=== PATIENT | male | born 1965 | race Caucasian/White ===

== ENCOUNTER 2021-09-02 08:48 | Observation (INO) | payer MEDICAID ==
[~2021-09-02] VITALS: Ht 167.7 cm; Wt 66.0 kg
[2021-09-02] MEDS ORDERED: ONDANSETRON 4 MG/2 ML (SDV) Z0FRAN ONE (09:17)
[2021-09-02 09:29] LABS: BASOPHILS # (AUTO) 0.1 10^3/uL (0.0-0.1); BASOPHILS % (AUTO) 1 % (0-10); EOSINOPHILS # (AUTO) 0.1 10^3/uL (0.0-0.3); EOSINOPHILS % (AUTO) 1 % (0-10); HEMATOCRIT 41 % (40-54); HEMOGLOBIN 14.4 g/dL (13.3-17.7); LYMPHOCYTES % (AUTO) 43 % (12-44); MEAN CORPUSCULAR HEMOGLOBIN 31 pg (25-34); MEAN CORPUSCULAR HGB CONC 35 g/dL (32-36); MEAN CORPUSCULAR VOLUME 89 fL (80-99); MEAN PLATELET VOLUME 10.6 fL (9.0-12.2); MONOCYTES # (AUTO) 0.7 10^3/uL (0.0-1.0); MONOCYTES % (AUTO) 7 % (0-12); NEUTROPHILS # (AUTO) 4.5 10^3/uL (1.8-7.8); NEUTROPHILS % (AUTO) 48 % (42-75); PLATELET COUNT 293 10^3/uL (130-400); WHITE BLOOD COUNT 9.3 10^3/uL (4.3-11.0)
[2021-09-02] MEDS ORDERED: CEFEPIME INJECTION 1,000 MG in NS (IVPB) 50 ML IV ONE (09:30)
[2021-09-02] MEDS ORDERED: NS IV 1000 ML 1,000 ML IV SCH ×3 (09:30→12:00)
[2021-09-02] MEDS ORDERED: ONDANSETRON 4 MG/2 ML (SDV) Z0FRAN IV PRN (09:30)
[2021-09-02] MEDS ORDERED: VANCOMYCIN INJECTION 1,250 MG in NS (IVPB) 250 ML IV ONE (09:30)
--- NOTE | 2021-09-02 09:30 | ED Neurological Problem ---
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 Patient complains that he feels like his left side of his face and arm are numb and tingly. No chest pain or tightness. No history of heart disease or stroke. Family history of cancer and Parkinson's. He denies nausea. He says he has a history of Tourette's. He says he has been having a hard time with walking due to a combination of feeling off balance as well as weakness in his left side. His sister says sometimes when his Tourette's acts up he has problems with balance but this is much worse. 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 He does not smoke cigarettes use tobacco products or marijuana. He denies recreational drug use. He does have a history of hypertension, hyperlipidemia and diabetes. His sugars usually run high. Pt has had EGD with Ulcers and laparoscopic pancreatic stone retrieval. Father had early onset coronary disease in his mid 40s. Allergies and Home Medications Allergies Coded Allergies: No Known Drug Allergies (Unverified , 02/21/11) Patient Home Medication List Home Medication List Reviewed: Yes Review of Systems Review of Systems Constitutional: No chills, No diaphoresis Eyes: Denies Blindness, Denies Drainage Ears, Nose, Mouth, Throat: denies ear pain, denies ear discharge Respiratory: cough; No phlegm, No short of breath Cardiovascular: No chest pain, No edema Gastrointestinal: No abdominal pain; nausea, vomiting Genitourinary: No discharge, No dysuria All Other Systems Reviewed Negative Unless Noted: Yes Past Tikpbfl-Cfwwqu-Nowpfw Hx Patient Social History Tobacco Use?: No Use of E-Cig and/or Vaping dev: No Substance use?: No Alcohol Use?: No Physical Exam Vital Signs Vital Signs - First Documented 09/02/21 09:04 Temp 36.0 Pulse 78 Resp 16 B/P (MAP) 91/70 (77) Pulse Ox 96 O2 Delivery Room Air Capillary Refill : Height, Weight, BMI Height: '" Weight: lbs. oz. kg; BMI Method: General Appearance: moderate distress, thin, other (Chronically ill) HEENT: PERRL/EOMI, pharynx normal Neck: full range of motion, supple, normal inspection Respiratory: chest non-tender, lungs clear, normal breath sounds, no respiratory distress, no accessory muscle use Cardiovascular: normal peripheral pulses, regular rate, rhythm (60-70), no edema Peripheral Pulses: 2+ Dorsalis Pedis (R), 2+ Left Dors-Pedis (L) Gastrointestinal: non tender, soft, no organomegaly Extremities: normal range of motion, non-tender, normal inspection, normal capillary refill Neurologic/Psychiatric: alert, oriented x 3 Crainal Nerves: normal hearing, normal speech, PERRL Coordination/Gait: abnormal gait (Stumbling, brought in by wheelchair) Skin: diaphoresis, pallor Stroke Onset of Symptoms Date of Onset of Symptoms: Sep 01, 2021 Time of Symptom Onset: 19:00 Onset of Symptoms: Yes Symptoms onset unknown: No NIH Stroke Scale Assessment Select: Initial Level of Consciousness: 0=Alert (0), Level of Consciousness- Questions: 0=Answers both month/age (0), LOC Commands: 0=Performs both tasks (0), Gaze: Normal (0), Visual Rodriges: 0=No visual loss (0), Facial Movement (Facial Paresis): 0=Normal symmetrical mnt (0), Motor Function-Arms Right: 0=No drift (0), Motor Function-Arms Left: 0=No drift (0), Motor Function-Legs Right: 0=No drift (0), Motor Function-Legs Left: 0=No drift (0), Limb Ataxia: 0=Absent (0), Sensory: 0=Normal:no loss (0), Best Language: 0=No aphasia (0), Dysarthria: 0=Normal (0), Extinction & Inattention: 0=No abnormality (0), Total: 0 Stroke Thrombolytic Exclusion Age 18 or Over: Yes Acute intenal hemorrhage: No History of CVA: No Uncontrolled Coagulation Defec: No Intracranial Hemorrhage: No Severe Hypertension: No GI or Bleed: No Subarachnoid Hemorrhage: No Intracranial Neoplasm/Aneurysm: No Oral Anticoagulants: No Surgery or Trauma: No Puncture of Non-Compressible V: No Recent CPR: No Diabetic Hemorrhagic Retinopat: No Organ Biopsy: No Recent Obstetric Delivery: No Glucose: No (159) Significant Hepatic Dysfunctio: No NIH Stoke Scale >22: No Bacterial Endocarditis: No Pericarditis: No Improving Symptoms: No Platelets: No TPA Contraindication: No IV - TPa Received IV - TPa Procedure Performed?: No (Insufficient benefit versus risk.) Focused Exam Lactate Level 09/02/21 09:20: Lactic Acid Level 4.64*H 09/02/21 12:07: Lactic Acid Level 2.45*H Lactic Acid Level Laboratory Tests Test 09/02/21 09:20 09/02/21 12:07 Lactic Acid Level 4.64 MMOL/L (0.50-2.00) *H 2.45 MMOL/L (0.50-2.00) *H Progress/Results/Core Measures Results/Orders Lab Results Laboratory Tests Test 09/02/21 09:13 09/02/21 09:20 09/02/21 09:28 09/02/21 11:00 Range/Units Glucometer 159 H 70-110 MG/DL White Blood Count 9.3 4.3-11.0 10^3/uL Red Blood Count 4.61 4.30-5.52 10^6/uL Hemoglobin 14.4 13.3-17.7 g/dL Hematocrit 41 40-54 % Mean Corpuscular Volume 89 80-99 fL Mean Corpuscular Hemoglobin 31 25-34 pg Mean Corpuscular Hemoglobin Concent 35 32-36 g/dL Red Cell Distribution Width 12.5 10.0-14.5 % Platelet Count 293 130-400 10^3/uL Mean Platelet Volume 10.6 9.0-12.2 fL Immature Granulocyte % (Auto) 0 % Neutrophils (%) (Auto) 48 42-75 % Lymphocytes (%) (Auto) 43 12-44 % Monocytes (%) (Auto) 7 0-12 % Eosinophils (%) (Auto) 1 0-10 % Basophils (%) (Auto) 1 0-10 % Neutrophils # (Auto) 4.5 1.8-7.8 10^3/uL Lymphocytes # (Auto) 4.0 1.0-4.0 10^3/uL Monocytes # (Auto) 0.7 0.0-1.0 10^3/uL Eosinophils # (Auto) 0.1 0.0-0.3 10^3/uL Basophils # (Auto) 0.1 0.0-0.1 10^3/uL Immature Granulocyte # (Auto) 0.0 0.0-0.1 10^3/uL Prothrombin Time 12.2 12.2-14.7 SEC INR Comment 0.9 0.8-1.4 Activated Partial Thromboplast Time 22 L 24-35 SEC D-Dimer 0.32 0.00-0.49 UG/ML Sodium Level 138 135-145 MMOL/L Potassium Level 3.3 L 3.6-5.0 MMOL/L Chloride Level 101 98-107 MMOL/L Carbon Dioxide Level 22 21-32 MMOL/L Anion Gap 15 H 5-14 MMOL/L Blood Urea Nitrogen 10 7-18 MG/DL Creatinine 1.15 0.60-1.30 MG/DL Estimat Glomerular Filtration Rate 66 BUN/Creatinine Ratio 9 Glucose Level 153 H 70-105 MG/DL Lactic Acid Level 4.64 *H 0.50-2.00 MMOL/L Calcium Level 10.0 8.5-10.1 MG/DL Corrected Calcium 10.0 8.5-10.1 MG/DL Total Bilirubin 0.5 0.1-1.0 MG/DL Aspartate Amino Transf (AST/SGOT) 17 5-34 U/L Alanine Aminotransferase (ALT/SGPT) 13 0-55 U/L Alkaline Phosphatase 114 40-136 U/L Troponin I < 0.028 <0.028 NG/ML C-Reactive Protein High Sensitivity 0.18 0.00-0.50 MG/DL Total Protein 7.6 6.4-8.2 GM/DL Albumin 4.0 3.2-4.5 GM/DL Lipase 12 8-78 U/L Procalcitonin 0.06 <0.10 NG/ML Influenza Type A (RT-PCR) Not Detected Not Detecte Influenza Type B (RT-PCR) Not Detected Not Detecte SARS-CoV-2 RNA (RT-PCR) Not Detected Not Detecte Urine Color YELLOW Urine Clarity CLEAR Urine pH 6.0 5-9 Urine Specific [place] <=1.005 1.016-1.022 Urine Protein 1+ H NEGATIVE Urine Glucose (UA) 3+ H NEGATIVE Urine Ketones NEGATIVE NEGATIVE Urine Nitrite NEGATIVE NEGATIVE Urine Bilirubin NEGATIVE NEGATIVE Urine Urobilinogen 0.2 < = 1.0 MG/DL Urine Leukocyte Esterase NEGATIVE NEGATIVE Urine RBC (Auto) NEGATIVE NEGATIVE Urine RBC NONE /HPF Urine WBC NONE /HPF Urine Squamous Epithelial Cells 0-2 /HPF Urine Crystals NONE /LPF Urine Bacteria NEGATIVE /HPF Urine Casts NONE /LPF Urine Mucus NEGATIVE /LPF Urine Culture Indicated CULTURE PENDING Test 09/02/21 12:07 Range/Units Lactic Acid Level 2.45 *H 0.50-2.00 MMOL/L My Orders Orders - HARRY DORMAN Ondansetron Injection (Zofran Injectio (09/02/21 09:17) Ct Head Wo (09/02/21:18) Cbc With Automated Diff (09/02/21:18) Comprehensive Metabolic Panel (09/02/21:18) Blood Culture (09/02/21:18) Urinalysis (09/02/21:18) Urine Culture (09/02/21:18) Protime With Inr (09/02/21:18) Partial Thromboplastin Time (09/02/21:18) Chest 1 View, Ap/Pa Only (09/02/21:18) Ed Iv/Invasive Line Start (09/02/21:18) Ed Iv/Invasive Line Start (09/02/21:18) Ekg Tracing (09/02/21:18) Troponin I (09/02/21:18) Vital Signs Adult Sepsis Patie Q15M (09/02/21 09:18) Ondansetron Injection (Zofran Injectio (09/02/21 09:30) O2 (09/02/21:18) Remove Rings In Anticipation O (09/02/21:18) Lactic Acid Analyzer (09/02/21:18) Influenza A And B By Pcr (09/02/21:18) Ns Iv 1000 Ml (Sodium Chloride 0.9%) (09/02/21 09:30) Cefepime Injection (Maxipime Injection) (09/02/21 09:30) Vancomycin Injection (Vancomycin Injecti (09/02/21 09:30) Ed Iv/Invasive Line Start (09/02/21:18) Ns Iv 1000 Ml (Sodium Chloride 0.9%) (09/02/21 09:30) Covid 19 Inhouse Test (09/02/21 09:18) Procalcitonin (Pct) (09/02/21 09:18) Hs C Reactive Protein (09/02/21 09:18) Fibrin Degradation Products (09/02/21 09:18) Ekg Tracing (09/02/21 09:40) Ekg Tracing (09/02/21 09:40) Aspirin Chewable Tablet (Baby Aspirin Ch (09/02/21 10:00) Ct Abdomen/Pelvis W (09/02/21 10:06) Iohexol Injection (Omnipaque 350 Mg/Ml 1 (09/02/21 10:15) Received Contrast (Hold Metformin- Contr (09/02/21 10:15) Ns (Ivpb) (Sodium Chloride 0.9% Ivpb Bag (09/02/21 10:15) Lipase (09/02/21 10:53) Chest Pa/Lat (2 View) (09/02/21 10:53) Ed Iv/Invasive Line Start (09/02/21 11:58) Ns Iv 1000 Ml (Sodium Chloride 0.9%) (09/02/21 12:00) Medications Given in ED Current Medications Medications Dose Ordered Sig/[place] Route Start Time Stop Time Status Last Admin Dose Admin Aspirin 324 mg ONCE ONCE PO 09/02/21 10:00 09/02/21 10:01 DC 09/02/21 10:00 324 MG Iohexol 100 ml ONCE ONCE IV 09/02/21 10:15 09/02/21 10:16 DC 09/02/21 10:21 72 ML Ondansetron HCl 8 mg PRN PRN IV 09/02/21 09:30 09/02/21 09:30 DC 09/02/21 09:29 8 MG Sodium Chloride 100 ml ONCE ONCE IV 09/02/21 10:15 09/02/21 10:16 DC 09/02/21 10:22 80 ML Vital Signs/I&O 09/02/21 09:04 Temp 36.0 Pulse 78 Resp 16 B/P (MAP) 91/70 (77) Pulse Ox 96 O2 Delivery Room Air Progress Progress Note #1: Time: 09:30 Progress Note In the middle of our opening interview the patient suddenly became unresponsive tossing his head from side to side and grunting. He then vomited out a hou cheeseburger that looked mostly undigested from last night. Blood sugar was obtained at 159. Patient was put into recovery position and his mouth was suctioned. EKG demonstrated some ST depression with a right bundle branch block in his anterior lateral leads. 8 mg of Zofran were given. A septic work-up was ordered. We are concerned for an atypical anginal presentation. Will repeat EKG shortly. Patient is now lucid, answering questions appropriately. He is pale diaphoretic and looks puny. While he has no fever he does have a cough. His abdomen is soft and nontender leading me to be concerned about gastroparesis more so than bowel obstruction. Because I am concerned for posterior OK we are repeating an EKG and doing a posterior lead EKG. If that is negative then we will perform an NIH. We were not able to complete NIH earlier because the patient became unresponsive in the middle of our exam. Progress Note #2: Time: 09:48 Progress Note Completed an NIH. Patient is lucid following commands. NIH is 0 he does not have any lateralizing symptoms except for paresthesias but no numbness. We will give him some aspirin to chew and swallow for cardioprotection and continue to work-up for infection. Progress Note #3: Time: 12:56 Progress Note On reexamination patient is about 1500 cc into his IV fluid bolus that. He has good blood pressure and says he is feeling much better. No nausea or vomiting. He is no longer sweaty pale and is now much more alert and active. Suspect perhaps he has become dehydrated related to chronic hyperglycemia. Discussed the case briefly with Dr. Dozier to see if there is anything else we should be concerned about especially along the lines of an ischemic bowel and he feels that dehydration makes more sense for the lactate and would recommend observation without antibiotics. Initial ECG Impression Date: Sep 02, 2021 Initial ECG Impression Time: 09:15 Initial ECG Rate: 68 Initial ECG Rhythm: Normal Sinus Initial ECG Intervals: Normal Initial ECG Impression: Normal Initial ECG Comparisson: No Previous ECG Available Comment Normal sinus rhythm with ST depression 1-2 blocks in the anterior lateral leads and a wandering baseline. Right bundle branch block. EKG #1: EKG Time: 09:35 Rate: 62 Rhythm: Normal Sinus Intervals: Normal ECG Comparisson: Unchanged ECG Impression: Normal, Nonspecific Changes Comment Normal sinus rhythm with a right bundle branch block. No clinically relevant ST changes. EKG #2: EKG Time: 09:37 Rate: 71 Rhythm: Normal Sinus Intervals: QT (492) ECG Comparisson: Unchanged ECG Impression: Normal, Nonspecific Changes Comment Posterior leads V4 through V6. Normal sinus rhythm with a right bundle branch block and borderline prolonged QT interval. No clinically relevant ST changes. Diagnostic Imaging Diagonstic Imaging: Xray Plain Films/CT/US/NM/MRI: chest [facility] [place] [place] NAME: [facility]I [facility] REC#: [id number] PT STATUS: REG ER : 1965 PHYSICIAN: HARRY DORMAN MD ADMIT DATE: 09/02/21/ER Draft Date of Exam:09/02/21 CHEST 1 VIEW, AP/PA ONLY INDICATION: sepsis. TECHNIQUE: Single view chest 10:19 AM. CORRELATION STUDY: 05/17/2017 FINDINGS: The heart size, mediastinal configuration and pulmonary vascularity are within normal limits. The lungs are clear with no consolidating infiltrate. Faint, slightly nodular opacity lateral left mid to lower lung field. There is no significant effusion or pneumothorax. IMPRESSION: 1. Negative for acute abnormality of the chest. 2. Questionable nodule lateral left mid and lower lung field. Area previously obscured by overlying monitor lead. Short-term followup two-view chest imaging recommended for reassessment, preferably to include nipple markers. Dictated on workstation # [id number] Dict: 09/02/21 1027 Trans: 09/02/21 1030 [facility] [id number] Interpreted by: JOE KOTHARI DO Electronically signed by: Reviewed: Reviewed by Me Diagonstic Imaging: CT Plain Films/CT/US/NM/MRI: head Comments [facility] [place] [place] NAME: SHRUTI [facility] REC#: [id number] PT STATUS: REG ER : 1965 PHYSICIAN: HARRY DORMAN MD ADMIT DATE: 09/02/21/ER Draft Date of Exam:09/02/21 CT HEAD WO PROCEDURE: CT head without contrast. TECHNIQUE: Multiple contiguous axial images were obtained through the brain without the use of intravenous contrast. Auto Exposure Controls were utilized during the CT exam to meet ALARA standards for radiation dose reduction. INDICATION: Left arm numbness and coolness. Worsening Tourette's. Difficulty with balance sitting. FINDINGS: Noncontrasted images show ventricles and cortical gyral pattern to be normal. There is no intracranial hemorrhage. No mass effect. No extra-axial fluid collection. Basal cisterns are clear. CP angles are normal. Mastoid air cells and paranasal sinuses are clear. No bony abnormalities. IMPRESSION: Negative CT head without contrast. Dictated on workstation # [id number] Dict: 09/02/21 1020 Trans: 09/02/21 1023 CV [id number] Interpreted by: SYED PALACIOS MD Electronically signed by: Reviewed: Reviewed by Me Diagonstic Imaging: CT Plain Films/CT/US/NM/MRI: abdomen, pelvis Comments [facility] [place] [place] NAME: SHRUTI [facility] REC#: [id number] PT STATUS: REG ER : 1965 PHYSICIAN: HARRY DORMAN MD ADMIT DATE: 09/02/21/ER Signed Date of Exam:09/02/21 CT ABDOMEN/PELVIS W EXAMINATION: CT abdomen and pelvis with intravenous contrast. TECHNIQUE: Multiple contiguous axial images were obtained through the abdomen and pelvis after the uneventful administration of intravenous contrast. All CT scans use one or more of the following dose optimizing techniques: automated exposure control, MA and/or KvP adjustment based on patient size and exam type or iterative reconstruction. HISTORY: Nausea and vomiting COMPARISON: None available. FINDINGS: Lung bases: Bibasilar dependent atelectasis. Solid organs: The liver is normal without focal lesion. The gallbladder is normal. There is no biliary ductal dilation. There are multiple calcifications within the pancreas, largest within the pancreatic head. There is pancreatic ductal dilatation and irregularity. Spleen is normal. Adrenal glands are normal. The kidneys are normal without hydronephrosis. Bowel: The stomach and small bowel are normal without obstruction. Decompression or wall thickening of the ascending colon. The appendix is normal. Peritoneum: There is no intraperitoneal free fluid or free air. No suspicious lymphadenopathy. Vasculature: Calcification of the aorta without aneurysm. Musculoskeletal: Degenerative changes of the spine without suspicious osseous lesion or compression fracture. Pelvis: The prostate gland is normal. The urinary bladder is normal. IMPRESSION: 1. Mild wall thickening of the ascending colon which can be seen with decompression although infectious or inflammatory colitis would be within the differential in the appropriate clinical setting. 2. Pancreatic ductal dilatation and irregularity with scattered pancreatic calcifications compatible with chronic pancreatitis. Dictated by: Dictated on workstation # [id number] Dict: 09/02/21 1026 Trans: 09/02/21 1033 CVB [id number] Interpreted by: SAEED DOSS DO Electronically signed by: SAEED DOSS DO 09/02/21 1033 Reviewed: Reviewed by Me Diagonstic Imaging: Xray Plain Films/CT/US/NM/MRI: chest Comments [facility] [place] [place] NAME: SHRUTI [facility] REC#: [id number] PT STATUS: REG ER : 1965 PHYSICIAN: HARRY DORMAN MD ADMIT DATE: 09/02/21/ER Draft Date of Exam:09/02/21 CHEST PA/LAT (2 VIEW) Portable erect AP chest at 11:25. Indication: Altered mental status The heart size is within normal limits and stable when compared to 05/17/2017. There are mild chronic pulmonary changes evident but there is no sign of failure, pneumonia or pleural effusion to indicate an acute abnormality. Bilateral nipple markers are seen on the PA view. The mediastinum is not widened. The osseous structures are intact. Impression: There are chronic pulmonary changes evident but there is no sign of an acute cardiopulmonary abnormality. Dictated on workstation # [id number] Dict: 09/02/21 1131 Trans: 09/02/21 1134 CVB [id number] Interpreted by: PATRICIA FELICIANO MD Electronically signed by: Reviewed: Reviewed by Me Departure Communication (Admissions) Time/Spoke to Admitting Phy: 12:[address] West he agrees with observing the patient on the c ardiac stepdown with cardiac consultation. Time/Spoke to Consulting Phy: 12:[address] Dozier and he recommends holding off antibiotics and just rehydrating. He would recommend rescoping the patient in 6 weeks outpatient. [address] Feldman, cardiology he agrees to consult on the case. Impression Primary Impression: ACS (acute coronary syndrome) Additional Impression: Dehydration Disposition: ADMITTED INPATIENT Condition: Stable Admissions Decision to Admit Reason: Admit from ER (General) Decision to Admit/Date: Sep 02, 2021 Time/Decision to Admit Time: 12:30 Departure-Patient Inst. Referrals: NO,LOCAL PHYSICIAN (PCP/Family) Primary Care Physician Scripts No Active Prescriptions or Reported Meds HARRY DORMAN Sep 02, 2021 09:30
[2021-09-02 09:44] LABS: CHLORIDE 101 MMOL/L (98-107); POTASSIUM 3.3 MMOL/L (3.6-5.0); SODIUM 138 MMOL/L (135-145)
[2021-09-02 09:46] LABS: FIBRIN DEGRADATION PRODUCTS 0.32 UG/ML (0.00-0.49); GLUCOSE 153 MG/DL (70-105); INR 0.9 (0.8-1.4); PROTHROMBIN TIME PATIENT 12.2 SEC (12.2-14.7); TOTAL PROTEIN 7.6 GM/DL (6.4-8.2)
[2021-09-02 09:47] LABS: CARBON DIOXIDE 22 MMOL/L (21-32)
[2021-09-02 09:48] LABS: BILIRUBIN,TOTAL 0.5 MG/DL (0.1-1.0)
[2021-09-02 09:49] LABS: ALKALINE PHOSPHATASE 114 U/L (40-136)
[2021-09-02 09:50] LABS: CREATININE SERUM 1.15 MG/DL (0.60-1.30); GFR ESTIMATED 66
[2021-09-02 09:51] LABS: BUN/CREATININE RATIO 9
[2021-09-02 09:53] LABS: ALANINE AMINOTRANSFERASE 13 U/L (0-55)
[2021-09-02] MEDS ORDERED: ASPIRIN 81 MG CHEW (CHILDREN'S ASA) PO ONE (10:00)
[2021-09-02] MEDS ORDERED: NS 100 ML (IVPB) BAG IV ONE (10:15)
[2021-09-02] MEDS ORDERED: IOHEXOL 350 MG/ML 100 ML (OMNIPAQUE 350) VIAL IV ONE (10:15)
[2021-09-02] MEDS ORDERED: HOLD METFORMIN - RECEIVED CONTRAST 20 ML VIAL IV SCH (10:15)
--- NOTE | 2021-09-02 10:23 | Diagnostic Imaging Report ---
PROCEDURE: CT head without contrast. TECHNIQUE: Multiple contiguous axial images were obtained through the brain without the use of intravenous contrast. Auto Exposure Controls were utilized during the CT exam to meet ALARA standards for radiation dose reduction. INDICATION: Left arm numbness and coolness. Worsening Tourette's. Difficulty with balance sitting. FINDINGS: Noncontrasted images show ventricles and cortical gyral pattern to be normal. There is no intracranial hemorrhage. No mass effect. No extra-axial fluid collection. Basal cisterns are clear. CP angles are normal. Mastoid air cells and paranasal sinuses are clear. No bony abnormalities. IMPRESSION: Negative CT head without contrast. Dictated by: Dictated on workstation # [id number]
--- NOTE | 2021-09-02 10:30 | Diagnostic Imaging Report ---
INDICATION: sepsis. TECHNIQUE: Single view chest 10:19 AM. CORRELATION STUDY: 05/17/2017 FINDINGS: The heart size, mediastinal configuration and pulmonary vascularity are within normal limits. The lungs are clear with no consolidating infiltrate. Faint, slightly nodular opacity lateral left mid to lower lung field. There is no significant effusion or pneumothorax. IMPRESSION: 1. Negative for acute abnormality of the chest. 2. Questionable nodule lateral left mid and lower lung field. Area previously obscured by overlying monitor lead. Short-term followup two-view chest imaging recommended for reassessment, preferably to include nipple markers. Dictated by: Dictated on workstation # [id number]
--- NOTE | 2021-09-02 10:33 | Diagnostic Imaging Report ---
EXAMINATION: CT abdomen and pelvis with intravenous contrast. TECHNIQUE: Multiple contiguous axial images were obtained through the abdomen and pelvis after the uneventful administration of intravenous contrast. All CT scans use one or more of the following dose optimizing techniques: automated exposure control, MA and/or KvP adjustment based on patient size and exam type or iterative reconstruction. HISTORY: Nausea and vomiting COMPARISON: None available. FINDINGS: Lung bases: Bibasilar dependent atelectasis. Solid organs: The liver is normal without focal lesion. The gallbladder is normal. There is no biliary ductal dilation. There are multiple calcifications within the pancreas, largest within the pancreatic head. There is pancreatic ductal dilatation and irregularity. Spleen is normal. Adrenal glands are normal. The kidneys are normal without hydronephrosis. Bowel: The stomach and small bowel are normal without obstruction. Decompression or wall thickening of the ascending colon. The appendix is normal. Peritoneum: There is no intraperitoneal free fluid or free air. No suspicious lymphadenopathy. Vasculature: Calcification of the aorta without aneurysm. Musculoskeletal: Degenerative changes of the spine without suspicious osseous lesion or compression fracture. Pelvis: The prostate gland is normal. The urinary bladder is normal. IMPRESSION: 1. Mild wall thickening of the ascending colon which can be seen with decompression although infectious or inflammatory colitis would be within the differential in the appropriate clinical setting. 2. Pancreatic ductal dilatation and irregularity with scattered pancreatic calcifications compatible with chronic pancreatitis. Dictated by: Dictated on workstation # [id number]
[2021-09-02 11:08] LABS: BILIRUBIN,URINE NEGATIVE (NEGATIVE); CLARITY,URINE CLEAR; COLOR,URINE YELLOW; GLUCOSE, URINE (UA) 3+ (NEGATIVE); KETONES,URINE NEGATIVE (NEGATIVE); LEUKOCYTE ESTERASE ,URINE NEGATIVE (NEGATIVE); NITRITE,URINE NEGATIVE (NEGATIVE); PROTEIN,URINE 1+ (NEGATIVE)
[2021-09-02 11:22] LABS: BACTERIA,URINE NEGATIVE /HPF; SQUAMOUS EPITHELIAL CELL,UR 0-2 /HPF
--- NOTE | 2021-09-02 11:34 | Diagnostic Imaging Report ---
Portable erect AP chest at 11:25. Indication: Altered mental status The heart size is within normal limits and stable when compared to 05/17/2017. There are mild chronic pulmonary changes evident but there is no sign of failure, pneumonia or pleural effusion to indicate an acute abnormality. Bilateral nipple markers are seen on the PA view. The mediastinum is not widened. The osseous structures are intact. Impression: There are chronic pulmonary changes evident but there is no sign of an acute cardiopulmonary abnormality. Dictated by: Dictated on workstation # [id number]
[2021-09-02 14:13] VITALS: BP 131/78
[2021-09-02] MEDS ORDERED: INSU100V6 SQ (14:29)
[2021-09-02] MEDS ORDERED: PAMI30VI8 SQ ×2 (14:29)
[2021-09-02] MEDS ORDERED: FLU QUADRIvalent (3YOA+) 60 mcg/0.5 ml 2021-22(AFLURIA) IM ONE (14:30)
[2021-09-02] MEDS ORDERED: NITROGLYCERIN 0.4 MG SL TABS BTL 25'S SL PRN (14:45)
[2021-09-02] MEDS ORDERED: morphine INJ 4 MG/ML 1 ML (VIAL/SYRINGE) IV PRN (14:45)
[2021-09-02] MEDS ORDERED: ACETAMINOPHEN 325 MG TABLET PO PRN (15:00)
[2021-09-02] MEDS ORDERED: ONDANSETRON 4 MG/2 ML (SDV) Z0FRAN IVP PRN (15:00)
[2021-09-02] MEDS ORDERED: INSU100I23 SQ (15:49)
[2021-09-02] MEDS ORDERED: DICL100G13 TOP (15:49)
[2021-09-02] MEDS ORDERED: ATOR80TA76 PO (15:49)
[2021-09-02] MEDS ORDERED: ASPI-1238 PO (15:49)
[2021-09-02] MEDS ORDERED: INSU100I10 SC (15:49)
[2021-09-02] MEDS ORDERED: PANT40TA52 PO (15:49)
[2021-09-02] MEDS ORDERED: DAPA10TA PO (15:49)
[2021-09-02] MEDS ORDERED: INSU100I23 SC (15:49)
[2021-09-02] MEDS ORDERED: LISI10TA25 PO (15:49)
[2021-09-02] MEDS ORDERED: PIOG30TA71 PO (15:50)
[2021-09-02 15:55] VITALS: BP 130/84
[2021-09-02] MEDS ORDERED: inSUlin ASPART (NovoLOG) 1 UNIT/0.01 ML (CHARGE PER UNIT) SC SCH ×2 (16:00→18:00)
[2021-09-02] MEDS: LACTATED RINGERS 1,000 ML IV SCH (16:04)
--- NOTE | 2021-09-02 16:14 | Consultation - Surgery ---
YOANA MIJARES 09/02/21 1614: History of Present Illness History of Present Illness Patient Consulted On(trenton/time) 09/02/21 16:14 Date Seen by Provider: Sep 02, 2021 Time Seen by Provider: 16:44 History of Present Illness Kartik Martínez is a 56 yo male with a history of HTN, HLD, and IDDM, who presented to the ER for evaluation and management of left face and left arm numbness and tingling during a Tourrette's flare-up, concerning for possible ACS. Patient states that he has had symptoms like this before, but never to this degree. He states that he also had trouble walking due to feeling off balance in addition to weakness in left side. Patient states that when he presented to the ER in the AM, he vomited, after which he felt improved, and states that he has not had nausea or vomiting since. Patient denies any, SOA, dizziness, or abdominal pain. Patient is on LR running on 100 ml/hr. We were consulted on this patient due to incidental finding of mild wall thickening of the ascending colon, suggestive of possible infectious/ inflammatory colitis or decompression. Allergies and Home Medications Allergies Coded Allergies: No Known Drug Allergies (Unverified , 02/21/11) Patient Home Medication List Home Medication List Reviewed: Yes Aspirin (Aspirin EC) 81 Mg Tablet.dr, 81 MG PO DAILY, (Reported) Entered as Reported by: BRANDO HOPE on 09/02/211548 Last Action: Reviewed Atorvastatin Calcium (Atorvastatin Calcium) 80 Mg Tablet, 80 MG PO DAILY, (Reported) Entered as Reported by: BRANDO HOPE on 09/02/211548 Last Action: Continued Dapagliflozin Propanediol (Farxiga) 10 Mg Tablet, 10 MG PO DAILY, (Reported) Entered as Reported by: BRANDO HOPE on 09/02/211548 Last Action: Held Diclofenac Sodium (Diclofenac Sodium) 100 Gm Gel..gram., 1 APPLIC TOP QID PRN for PAIN-BREAKTHROUGH, (Reported) Entered as Reported by: BRNADO HOPE on 09/02/211548 Last Action: Held Insulin Glargine,Hum.rec.anlog (Lantus Solostar) 100 Unit/1 Ml Insuln.pen, 40 UNITS SC BID, (Reported) Entered as Reported by: BRANDO OHPE on 09/02/211548 Last Action: Reviewed Insulin Lispro (Humalog Kwikpen) 100 Unit/1 Ml Insuln.pen, 20 UNITS SC 0700 BEFORE MEAL, (Reported) Entered as Reported by: BRANDO HOPE on 09/02/211548 Last Action: Reviewed Insulin Lispro (Humalog Kwikpen) 100 Unit/1 Ml Insuln.pen, 10 UNIT SQ 1200,1800 AC, (Reported) Entered as Reported by: BRANDO HOPE on 09/02/211548 Last Action: Reviewed Lisinopril (Lisinopril) 10 Mg Tablet, 10 MG PO DAILY, (Reported) Entered as Reported by: BRANDO HOPE on 09/02/211548 Last Action: Continued Pantoprazole Sodium (Pantoprazole Sodium) 40 Mg Tablet.dr, 40 MG PO DAILY, (Reported) Entered as Reported by: BRANDO HOPE on 09/02/211548 Last Action: Reviewed Pioglitazone HCl (Pioglitazone HCl) 30 Mg Tablet, 30 MG PO DAILY, (Reported) Entered as Reported by: BRANDO HOPE on 09/02/211549 Last Action: Continued Discontinued Medications Insulin Glargine,Hum.rec.anlog (Lantus) 100 Unit/1 Ml Vial, 40 UNIT SQ BID, (Reported) Discontinued Reason: No Longer Taking Entered as Reported by: NIEVES ESPINAL on 09/02/211428 Last Action: Discontinued Insulin Lispro (Humalog) 100 Unit/1 Ml Cartridge, 20 UNIT SQ DAILY, (Reported) Discontinued Reason: No Longer Taking Entered as Reported by: NIEVES ESPINAL on 09/02/211428 Last Action: Discontinued Insulin Lispro (Humalog) 100 Unit/1 Ml Cartridge, 10 UNIT SQ AC, (Reported) Discontinued Reason: No Longer Taking Entered as Reported by: NIEVES ESPINAL on 09/02/211428 Last Action: Discontinued Past Speuhca-Ezbaal-Vvixnw Hx Patient Social History Smoking Status: Never a Smoker Alcohol Use?: No Have you traveled recently?: Yes Surgeries Surgeries: Pancreatic (Stone removal) Cardiovascular Cardiac Disorders: High Cholesterol, Hypertension Neurological History of Neurological Disord: Yes (Tourette Syndrome) Gastrointestinal Gastrointestinal Disorders: Pancreatitis Endocrine Endocrine Disorders: Diabetes, Insulin dep Review of Systems-General Constitutional: No dizziness, No fever, No malaise EENTM: No blurred vision, No double vision Respiratory: No cough, No short of breath Cardiovascular: No chest pain, No palpitations Gastrointestinal: No abdominal pain, No nausea Genitourinary: No dysuria, No frequency Musculoskeletal: No back pain, No muscle pain Skin: No lesions, No lumps Psychiatric/Neurological: Numbness (In left fingers) Physical Exam-General Problems Physical Exam Vital Signs Vital Signs - First Documented 09/02/21 09:04 Temp 36.0 Pulse 78 Resp 16 B/P (MAP) 91/70 (77) Pulse Ox 96 O2 Delivery Room Air Capillary Refill : Less Than 3 Seconds General Appearance: WD/WN, no apparent distress Eyes: Bilateral Eye Normal Inspection, Bilateral Eye PERRL, Bilateral Eye EOMI HEENT: PERRL/EOMI Respiratory: chest non-tender, lungs clear, normal breath sounds, no respiratory distress, no accessory muscle use Cardiovascular: regular rate, rhythm, no edema Peripheral Pulses: 2+ Radial Pulses (R), 2+ Radial Pulses (L) Gastrointestinal: normal bowel sounds, non tender, soft Rectal: deferred Extremities: normal range of motion, normal inspection, no pedal edema Neurologic/Psychiatric: alert, normal mood/affect, oriented x 3, other (numbness/tingling in the L fingers) Skin: normal color, warm/dry Lymphatic: no adenopathy Data Review Labs Laboratory Tests 09/02/21 09:13: Glucometer 159H 09/02/21 09:20: White Blood Count 9.3, Red Blood Count 4.61, Hemoglobin 14.4, Hematocrit 41, Mean Corpuscular Volume 89, Mean Corpuscular Hemoglobin 31, Mean Corpuscular Hemoglobin Concent 35, Red Cell Distribution Width 12.5, Platelet Count 293, Mean Platelet Volume 10.6, Immature Granulocyte % (Auto) 0, Neutrophils (%) (Auto) 48, Lymphocytes (%) (Auto) 43, Monocytes (%) (Auto) 7, Eosinophils (%) (Auto) 1, Basophils (%) (Auto) 1, Neutrophils # (Auto) 4.5, Lymphocytes # (Auto) 4.0, Monocytes # (Auto) 0.7, Eosinophils # (Auto) 0.1, Basophils # (Auto) 0.1, Immature Granulocyte # (Auto) 0.0, Prothrombin Time 12.2, INR Comment 0.9, Activated Partial Thromboplast Time 22L, D-Dimer 0.32, Sodium Level 138, Potassium Level 3.3L, Chloride Level 101, Carbon Dioxide Level 22, Anion Gap 15H , Blood Urea Nitrogen 10, Creatinine 1.15, Estimat Glomerular Filtration Rate 66, BUN/Creatinine Ratio 9, Glucose Level 153H, Lactic Acid Level 4.64*H, Calcium Level 10.0, Corrected Calcium 10.0, Total Bilirubin 0.5, Aspartate Amino Transf (AST/SGOT) 17, Alanine Aminotransferase (ALT/SGPT) 13, Alkaline Phosphatase 114, Troponin I < 0.028, C-Reactive Protein High Sensitivity 0.18, Total Protein 7.6, Albumin 4.0, Lipase 12, Procalcitonin 0.06 09/02/21 09:28: Influenza Type A (RT-PCR) Not Detected, Influenza Type B (RT-PCR) Not Detected, SARS-CoV-2 RNA (RT-PCR) Not Detected 09/02/21 11:00: Urine Color YELLOW, Urine Clarity CLEAR, Urine pH 6.0, Urine Specific [place] <=1.005, Urine Protein 1+H, Urine Glucose (UA) 3+H, Urine Ketones NEGATIVE, Urine Nitrite NEGATIVE, Urine Bilirubin NEGATIVE, Urine Urobilinogen 0.2, Urine Leukocyte Esterase NEGATIVE, Urine RBC (Auto) NEGATIVE, Urine RBC NONE, Urine WBC NONE, Urine Squamous Epithelial Cells 0-2, Urine Crystals NONE, Urine Bacteria NEGATIVE, Urine Casts NONE, Urine Mucus NEGATIVE, Urine Culture Indicated CULTURE PENDING 09/02/21 12:07: Lactic Acid Level 2.45*H 09/02/21 14:55: Lactic Acid Level 1.72, Troponin I < 0.028 Radiology PROCEDURE: CT head without contrast. TECHNIQUE: Multiple contiguous axial images were obtained through the brain without the use of intravenous contrast. Auto Exposure Controls were utilized during the CT exam to meet ALARA standards for radiation dose reduction. INDICATION: Left arm numbness and coolness. Worsening Tourette's. Difficulty with balance sitting. FINDINGS: Noncontrasted images show ventricles and cortical gyral pattern to be normal. There is no intracranial hemorrhage. No mass effect. No extra-axial fluid collection. Basal cisterns are clear. CP angles are normal. Mastoid air cells and paranasal sinuses are clear. No bony abnormalities. IMPRESSION: Negative CT head without contrast. CHEST 1 VIEW, AP/PA ONLY INDICATION: sepsis. TECHNIQUE: Single view chest 10:19 AM. CORRELATION STUDY: 05/17/2017 FINDINGS: The heart size, mediastinal configuration and pulmonary vascularity are within normal limits. The lungs are clear with no consolidating infiltrate. Faint, slightly nodular opacity lateral left mid to lower lung field. There is no significant effusion or pneumothorax. IMPRESSION: 1. Negative for acute abnormality of the chest. 2. Questionable nodule lateral left mid and lower lung field. Area previously obscured by overlying monitor lead. Short-term followup two-view chest imaging recommended for reassessment, preferably to include nipple markers. CHEST PA/LAT (2 VIEW) Portable erect AP chest at 11:25. Indication: Altered mental status The heart size is within normal limits and stable when compared to 05/17/2017. There are mild chronic pulmonary changes evident but there is no sign of failure, pneumonia or pleural effusion to indicate an acute abnormality. Bilateral nipple markers are seen on the PA view. The mediastinum is not widened. The osseous structures are intact. Impression: There are chronic pulmonary changes evident but there is no sign of an acute cardiopulmonary abnormality. CT ABDOMEN/PELVIS W EXAMINATION: CT abdomen and pelvis with intravenous contrast. TECHNIQUE: Multiple contiguous axial images were obtained through the abdomen and pelvis after the uneventful administration of intravenous contrast. All CT scans use one or more of the following dose optimizing techniques: automated exposure control, MA and/or KvP adjustment based on patient size and exam type or iterative reconstruction. HISTORY: Nausea and vomiting COMPARISON: None available. FINDINGS: Lung bases: Bibasilar dependent atelectasis. Solid organs: The liver is normal without focal lesion. The gallbladder is normal. There is no biliary ductal dilation. There are multiple calcifications within the pancreas, largest within the pancreatic head. There is pancreatic ductal dilatation and irregularity. Spleen is normal. Adrenal glands are normal. The kidneys are normal without hydronephrosis. Bowel: The stomach and small bowel are normal without obstruction. Decompression or wall thickening of the ascending colon. The appendix is normal. Peritoneum: There is no intraperitoneal free fluid or free air. No suspicious lymphadenopathy. Vasculature: Calcification of the aorta without aneurysm. Musculoskeletal: Degenerative changes of the spine without suspicious osseous lesion or compression fracture. Pelvis: The prostate gland is normal. The urinary bladder is normal. IMPRESSION: 1. Mild wall thickening of the ascending colon which can be seen with decompression although infectious or inflammatory colitis would be within the differential in the appropriate clinical setting. 2. Pancreatic ductal dilatation and irregularity with scattered pancreatic calcifications compatible with chronic pancreatitis. Assessment/Plan Assessment/Plan Assessment/Plan 1. Dehydration -Lactic acid currently 1.7, which is decreased from 4.64 this AM -LR already running at 100 ml/hr 2. Mild wall thickening of Ascending colon on CT, concerning for possible colitis -Asymptomatic -Hold off on antibiotics, and rehydrate. Scope in 6 weeks outpatient. 3. ACS -Evaluated by cardiology -Echo is ordered - Aspirin 81 mg QD -Nitro PRN 3. Tourette Syndrome 4. HLD 5. HTN -Echo is ordered 6. IDDM -Metformin on hold d/t contrast received Clinical Quality Measures Stroke: Date of last known well: Sep 01, 2021 Time of last known well: 19:00 Symptoms onset unknown: No SHEA LEROY DO 09/03/211955: History of Present Illness History of Present Illness History of Present Illness Patient 56-year-old male who this morning had an episode of nausea and vomiting. He states he went to emergency department for evaluation at that time. He was sent home. Patient returned feeling as if he is having tingling like he is having a Tourette's flareup and having left arm numbness. He was concerned about ACS. Patient states that he is no longer having any nausea or vomiting is had at this morning. This evening he is not had any issues. Patient has no abdominal pain. Patient had a CT scan that had incidental finding of some wall thickening of the ascending colon. He had no elevated white count. He has no abdominal pain. His lactic was elevated. Patient question if he is dehydrated denies any fever sweats chills shortness of breath or chest pain at this time. Allergies and Home Medications Allergies Coded Allergies: No Known Drug Allergies (Unverified , 02/21/11) Patient Home Medication List Home Medication List Reviewed: Yes Aspirin (Aspirin EC) 81 Mg Tablet., 81 MG PO DAILY, (Reported) Entered as Reported by: BRANDO HOPE on 09/02/21 5949 Last Action: Reviewed Atorvastatin Calcium (Atorvastatin Calcium) 80 Mg Tablet, 80 MG PO DAILY, (Reported) Entered as Reported by: BRANDO HOPE on 09/02/21 7554 Last Action: Continued Dapagliflozin Propanediol (Farxiga) 10 Mg Tablet, 10 MG PO DAILY, (Reported) Entered as Reported by: BRANDO HOPE on 09/02/211548 Last Action: Held Diclofenac Sodium (Diclofenac Sodium) 100 Gm Gel..gram., 1 APPLIC TOP QID PRN for PAIN-BREAKTHROUGH, (Reported) Entered as Reported by: BRANDO HOPE on 09/02/211548 Last Action: Held Insulin Glargine,Hum.rec.anlog (Lantus Solostar) 100 Unit/1 Ml Insuln.pen, 40 UNITS SC BID, (Reported) Entered as Reported by: BRANDO HOPE on 09/02/211548 Last Action: Reviewed Insulin Lispro (Humalog Kwikpen) 100 Unit/1 Ml Insuln.pen, 20 UNITS SC 0700 BEFORE MEAL, (Reported) Entered as Reported by: BRANDO HOPE on 09/02/211548 Last Action: Reviewed Insulin Lispro (Humalog Kwikpen) 100 Unit/1 Ml Insuln.pen, 10 UNIT SQ 1200,1800 AC, (Reported) Entered as Reported by: BRANDO HOPE on 09/02/211548 Last Action: Reviewed Lisinopril (Lisinopril) 10 Mg Tablet, 10 MG PO DAILY, (Reported) Entered as Reported by: BRANDO HOPE on 09/02/211548 Last Action: Continued Pantoprazole Sodium (Pantoprazole Sodium) 40 Mg Tablet.dr, 40 MG PO DAILY, (Reported) Entered as Reported by: BRANDO HOPE on 09/02/211548 Last Action: Reviewed Pioglitazone HCl (Pioglitazone HCl) 30 Mg Tablet, 30 MG PO DAILY, (Reported) Entered as Reported by: BRANDO HOPE on 09/02/211549 Last Action: Continued Discontinued Medications Insulin Glargine,Hum.rec.anlog (Lantus) 100 Unit/1 Ml Vial, 40 UNIT SQ BID, (Reported) Discontinued Reason: No Longer Taking Entered as Reported by: NIEVES ESPINAL on 09/02/211428 Last Action: Discontinued Insulin Lispro (Humalog) 100 Unit/1 Ml Cartridge, 20 UNIT SQ DAILY, (Reported) Discontinued Reason: No Longer Taking Entered as Reported by: NIEVES ESPINAL on 09/02/211428 Last Action: Discontinued Insulin Lispro (Humalog) 100 Unit/1 Ml Cartridge, 10 UNIT SQ AC, (Reported) Discontinued Reason: No Longer Taking Entered as Reported by: NIEVES ESPINAL on 09/02/21 6039 Last Action: Discontinued Past Lveuizz-Toadji-Boafsp Hx Reviewed Nursing Assessment Reviewed/Agree w Nursing PMH: Yes Family Medical History Significant Family History: No Pertinent Family Hx Review of Systems-General Constitutional: No dizziness, No fever, No malaise; weakness EENTM: No blurred vision, No double vision Respiratory: No cough, No short of breath Cardiovascular: No chest pain, No palpitations Gastrointestinal: No abdominal pain; nausea, vomiting Genitourinary: No dysuria, No frequency Musculoskeletal: No back pain, No muscle pain Skin: No lesions, No lumps Psychiatric/Neurological: Denies Anxiety, Denies Depressed, Denies Emotional Problems; Numbness (In left fingers) All Other Systems Reviewed Negative Unless Noted: Yes (Negative excepted noted.) Physical Exam-General Problems Physical Exam General Appearance: WD/WN, no apparent distress HEENT: PERRL/EOMI, normal ENT inspection Neck: non-tender, supple Respiratory: chest non-tender, no respiratory distress, no accessory muscle use Cardiovascular: regular rate, rhythm, no edema Gastrointestinal: non tender, soft Rectal: deferred Back: normal inspection, no CVA tenderness Extremities: normal range of motion, normal inspection, no pedal edema Neurologic/Psychiatric: shipper II-XII nml as tested, no motor/sensory deficits, alert, normal mood/affect, oriented x 3 Skin: normal color, warm/dry Lymphatic: no adenopathy Assessment/Plan Assessment/Plan Assessment/Plan A sending colitis Abnormal CT scan Dehydration Tourette's Patient with thickening of the ascending colon by CT scan. I feel this is nothing significant due to patient having no abdominal pain and no elevation in his white blood cell count. I think he is probably likely dehydrated his lactic has returned to normal on repeat and with fluid resuscitation. No surgical intervention at this time. Would recommend evaluation of the colon with an colonoscopy in approximately 6 to 8 weeks. Patient lives near [place] which he would like to have that done there. Continue conservative measures at this time. Supervisory-Addendum Brief Verification & Attestation Participated in pt care: history, MDM, physical Personally performed: exam, history, MDM, supervision of care Care discussed with: Medical Student Procedures: n/a Results interpretation: Verified all documentation Verification and Attestation of Medical Student E/M Service A medical student performed and documented this service in my presence. I reviewed and verified all information documented by the medical student and made modifications to such information, when appropriate. I personally performed the physical exam and medical decision making. Shea Leroy, Sep 02, 2021,21:56 YOANA MIJARES Sep 02, 2021 16:14 SHEA LEROY DO Sep 03, 2021 19:56
[2021-09-02] MEDS ORDERED: REGADENOSON 0.4 MG/5 ML SYR (LEXISCAN) IV ONE (17:30)
--- NOTE | 2021-09-02 17:47 | Consultation-Cardiology ---
HPI-Cardiology Cardiology Consultation: Date of Consultation 09/02/2021 Date of Admission 09/02/2021 Attending Physician Suzy West MD Admitting Physician No,Local Physician Consulting Physician JAY EM JR, MD HPI: Time Seen by a Provider: 17:42 Chief Complaint: Reason for consultation: Left arm pain and abnormal electrocardiogram. I had the pleasure of seeing Kartik on the cardiac stepdown unit at [facility] in [place], [place] this afternoon. He has no known history of coronary artery disease but does have cardiac risk factors of type 2 diabetes mellitus, hypertension and hyperlipidemia. He is actually here visiting his sister. He lives in [place], [place]. This morning when he woke up, he had numbness in his left hand and fingers. This gradually worked its way up towards his left arm and shoulder. Then his left arm started to hurt and feel weak. He denies any chest discomfort. He became concerned and came to the hospital for further evaluation. While he was being evaluated by the emergency room physician, he suddenly became unresponsive and vomited. The patient does not recall this incident. A short while later he woke up. Because of this left arm symptom and the apparent syncope versus seizure, the patient was admitted for further evaluation. Because of the abnormal electrocardiogram and left arm pain, a cardiology consultation was requested. Again, he denies any chest discomfort. He states that this summer he was mowing a lawn with a push mower and suddenly collapsed. He states that his knees gave out. He denies any syncope. He denies any previous history of loss of consciousness until the event of today in the emergency room. He does get some occasional lightheaded spells and dizziness. He denies dyspnea, paroxysmal nocturnal dyspnea, orthopnea, palpitations, or ankle edema. He does not smoke cigarettes. He is on permanent disability due to previous injuries to his left leg. Certain portions of this document may have been dictated utilizing voice recognition technology. Inherent to this technology, typographical and grammatical errors may exist. As much as I am diligent to identify and correct these mistakes, some errors may remain in the document. Review of Systems-Cardiology Review of Systems Other comments Review of 10 organ systems is as per the history of present illness, otherwise negative. All Other Systems Reviewed Negative Unless Noted: Yes [id number] Hx Patient Social History Smoking Status: Never a Smoker Have you traveled recently?: Yes Alcohol Use?: No Pt feels they are or have been: Yes Past Medical History PMH As described under Assessment. Family Medical History Family Medical History: The patient does not know of any family history of premature coronary artery disease in first-degree relatives. His father did have bypass surgery but at an older age. His mother had coronary stents but also at an older age. Allergies and Home Medications Allergies Coded Allergies: No Known Drug Allergies (Unverified , 02/21/11) Patient Home Medication List Home Medication List Reviewed: Yes Aspirin (Aspirin EC) 81 Mg Tablet.dr, 81 MG PO DAILY, (Reported) Entered as Reported by: BRANDO HOPE on 09/02/211548 Last Action: Reviewed Atorvastatin Calcium (Atorvastatin Calcium) 80 Mg Tablet, 80 MG PO DAILY, (Reported) Entered as Reported by: BRANDO HOPE on 09/02/211548 Last Action: Continued Dapagliflozin Propanediol (Farxiga) 10 Mg Tablet, 10 MG PO DAILY, (Reported) Entered as Reported by: BRANDO HOPE on 09/02/211548 Last Action: Held Diclofenac Sodium (Diclofenac Sodium) 100 Gm Gel..gram., 1 APPLIC TOP QID PRN for PAIN-BREAKTHROUGH, (Reported) Entered as Reported by: BRANDO HOPE on 09/02/211548 Last Action: Held Insulin Glargine,Hum.rec.anlog (Lantus Solostar) 100 Unit/1 Ml Insuln.pen, 40 UNITS SC BID, (Reported) Entered as Reported by: BRANDO HOPE on 09/02/211548 Last Action: Reviewed Insulin Lispro (Humalog Kwikpen) 100 Unit/1 Ml Insuln.pen, 20 UNITS SC 0700 BEFORE MEAL, (Reported) Entered as Reported by: BRANDO HOPE on 09/02/211548 Last Action: Reviewed Insulin Lispro (Humalog Kwikpen) 100 Unit/1 Ml Insuln.pen, 10 UNIT SQ 1200,1800 AC, (Reported) Entered as Reported by: BRANDO HOPE on 09/02/211548 Last Action: Reviewed Lisinopril (Lisinopril) 10 Mg Tablet, 10 MG PO DAILY, (Reported) Entered as Reported by: BRANDO HOPE on 09/02/211548 Last Action: Continued Pantoprazole Sodium (Pantoprazole Sodium) 40 Mg Tablet.dr, 40 MG PO DAILY, (Reported) Entered as Reported by: BRANDO HOPE on 09/02/21 154 Last Action: Reviewed Pioglitazone HCl (Pioglitazone HCl) 30 Mg Tablet, 30 MG PO DAILY, (Reported) Entered as Reported by: BRANDO HOPE on 09/02/21 1550 Last Action: Continued Discontinued Medications Insulin Glargine,Hum.rec.anlog (Lantus) 100 Unit/1 Ml Vial, 40 UNIT SQ BID, (Reported) Discontinued Reason: No Longer Taking Entered as Reported by: NIEVES ESPINAL on 09/02/211428 Last Action: Discontinued Insulin Lispro (Humalog) 100 Unit/1 Ml Cartridge, 20 UNIT SQ DAILY, (Reported) Discontinued Reason: No Longer Taking Entered as Reported by: NIEVES ESPINAL on 09/02/211428 Last Action: Discontinued Insulin Lispro (Humalog) 100 Unit/1 Ml Cartridge, 10 UNIT SQ AC, (Reported) Discontinued Reason: No Longer Taking Entered as Reported by: NIEVES ESPINAL on 09/02/211428 Last Action: Discontinued Exam Vital Signs Vital Signs Date Time Temp Pulse Resp B/P (MAP) Pulse Ox O2 Delivery O2 Flow Rate FiO2 09/02/21 16:56 Room Air 09/02/21 15:55 36.5 72 20 130/84 (99) 99 Physical Exam General: Alert. No acute distress. Well nourished and appears stated age. Eye: Extraocular movements are intact. Conjunctivae are clear. There are no xanthelasma. HENT: Normocephalic. Atraumatic. Carotid pulsations 2/2 without bruits. Neck: Jugular venous pressure does not appear elevated. No thyromegaly appreciated. Respiratory: Lungs are clear to auscultation. Respirations are non-labored. Breath sounds are equal. Symmetrical chest wall expansion. Cardiovascular: Normal rate. Regular rhythm. No murmur. No gallop. Point of max imal impulse is not appear displaced. Good pulses equal in all extremities. No edema. Gastrointestinal: Soft. Normal bowel sounds. Skin: Skin turgor is normal. There is no pallor. Musculoskeletal: No kyphosis or scoliosis appreciated. Neurologic: Alert and oriented to person, place, time. Cranial nerves 3-12 appear grossly intact. The patient has good motor tone strength in the upper and lower extremities bilaterally. Psychiatric: Cooperative. Appropriate mood & affect. Labs Laboratory Tests Test 09/02/21 09:13 09/02/21 09:20 09/02/21 09:28 09/02/21 11:00 Range/Units Glucometer 159 H 70-110 MG/DL White Blood Count 9.3 4.3-11.0 10^3/uL Red Blood Count 4.61 4.30-5.52 10^6/uL Hemoglobin 14.4 13.3-17.7 g/dL Hematocrit 41 40-54 % Mean Corpuscular Volume 89 80-99 fL Mean Corpuscular Hemoglobin 31 25-34 pg Mean Corpuscular Hemoglobin Concent 35 32-36 g/dL Red Cell Distribution Width 12.5 10.0-14.5 % Platelet Count 293 130-400 10^3/uL Mean Platelet Volume 10.6 9.0-12.2 fL Immature Granulocyte % (Auto) 0 % Neutrophils (%) (Auto) 48 42-75 % Lymphocytes (%) (Auto) 43 12-44 % Monocytes (%) (Auto) 7 0-12 % Eosinophils (%) (Auto) 1 0-10 % Basophils (%) (Auto) 1 0-10 % Neutrophils # (Auto) 4.5 1.8-7.8 10^3/uL Lymphocytes # (Auto) 4.0 1.0-4.0 10^3/uL Monocytes # (Auto) 0.7 0.0-1.0 10^3/uL Eosinophils # (Auto) 0.1 0.0-0.3 10^3/uL Basophils # (Auto) 0.1 0.0-0.1 10^3/uL Immature Granulocyte # (Auto) 0.0 0.0-0.1 10^3/uL Prothrombin Time 12.2 12.2-14.7 SEC INR Comment 0.9 0.8-1.4 Activated Partial Thromboplast Time 22 L 24-35 SEC D-Dimer 0.32 0.00-0.49 UG/ML Sodium Level 138 135-145 MMOL/L Potassium Level 3.3 L 3.6-5.0 MMOL/L Chloride Level 101 98-107 MMOL/L Carbon Dioxide Level 22 21-32 MMOL/L Anion Gap 15 H 5-14 MMOL/L Blood Urea Nitrogen 10 7-18 MG/DL Creatinine 1.15 0.60-1.30 MG/DL Estimat Glomerular Filtration Rate 66 BUN/Creatinine Ratio 9 Glucose Level 153 H 70-105 MG/DL Lactic Acid Level 4.64 *H 0.50-2.00 MMOL/L Calcium Level 10.0 8.5-10.1 MG/DL Corrected Calcium 10.0 8.5-10.1 MG/DL Total Bilirubin 0.5 0.1-1.0 MG/DL Aspartate Amino Transf (AST/SGOT) 17 5-34 U/L Alanine Aminotransferase (ALT/SGPT) 13 0-55 U/L Alkaline Phosphatase 114 40-136 U/L Troponin I < 0.028 <0.028 NG/ML C-Reactive Protein High Sensitivity 0.18 0.00-0.50 MG/DL Total Protein 7.6 6.4-8.2 GM/DL Albumin 4.0 3.2-4.5 GM/DL Lipase 12 8-78 U/L Procalcitonin 0.06 <0.10 NG/ML Influenza Type A (RT-PCR) Not Detected Not Detecte Influenza Type B (RT-PCR) Not Detected Not Detecte SARS-CoV-2 RNA (RT-PCR) Not Detected Not Detecte Urine Color YELLOW Urine Clarity CLEAR Urine pH 6.0 5-9 Urine Specific [place] <=1.005 1.016-1.022 Urine Protein 1+ H NEGATIVE Urine Glucose (UA) 3+ H NEGATIVE Urine Ketones NEGATIVE NEGATIVE Urine Nitrite NEGATIVE NEGATIVE Urine Bilirubin NEGATIVE NEGATIVE Urine Urobilinogen 0.2 < = 1.0 MG/DL Urine Leukocyte Esterase NEGATIVE NEGATIVE Urine RBC (Auto) NEGATIVE NEGATIVE Urine RBC NONE /HPF Urine WBC NONE /HPF Urine Squamous Epithelial Cells 0-2 /HPF Urine Crystals NONE /LPF Urine Bacteria NEGATIVE /HPF Urine Casts NONE /LPF Urine Mucus NEGATIVE /LPF Urine Culture Indicated CULTURE PENDING Test 09/02/21 12:07 09/02/21 14:55 09/02/21 17:14 Range/Units Lactic Acid Level 2.45 *H 1.72 0.50-2.00 MMOL/L Troponin I < 0.028 <0.028 NG/ML Glucometer 183 H 70-110 MG/DL ECG Impression ECG Comment Sinus rhythm with right bundle branch block and probable left ventricular hypertrophy. Diagnosis/Problems Diagnosis/Problems (1) Left arm pain Assessment & Plan: He had left arm pain of unclear etiology. He has had 2 negative troponin levels and no ischemic changes on his electrocardiogram. He does however have cardiac risk factors of hypertension and hyperlipidemia. As such, coronary ischemia is certainly in the differential diagnosis. I recommend further evaluation with a regadenoson nuclear stress test and echocardiogram. In the interim, he should continue on aspirin and statin medication which he was taking at home. Further evaluation and management after we have the results of the above testing. (2) Abnormal electrocardiogram Assessment & Plan: As above, he has right bundle branch block on his electrocardiogram but no ischemic changes. In light of the left arm pain, we will proceed as above. (3) Primary hypertension Assessment & Plan: He should continue his outpatient antihypertensive medication. (4) Mixed hyperlipidemia Assessment & Plan: His statin medication has been resumed. I will order a lipid panel for tomorrow. (5) Type 2 diabetes mellitus without complication Assessment & Plan: This is being managed by the hospitalist. I did take the liberty of adding a hemoglobin A1c level to his admission blood sample. JAY EM JR, MD Sep 02, 2021 17:47
[2021-09-02] MEDS: inSUlin ASPART (NovoLOG) 1 UNIT/0.01 ML (CHARGE PER UNIT) SC SCH ×2 (18:17→20:26)
[2021-09-02 20:00] VITALS: BP 119/75
[2021-09-02] MEDS ORDERED: ENOXAPARIN 40 MG/0.4 ML (LOVENOX) SYR SC SCH (21:00)
[2021-09-03] VITALS (8 sets, daily range): BP systolic 109–168; BP diastolic 55–98
[2021-09-03] MEDS: LACTATED RINGERS 1,000 ML IV SCH ×3 (04:16→20:07)
[2021-09-03 05:29] LABS: BASOPHILS % (AUTO) 0 % (0-10); EOSINOPHILS # (AUTO) 0.1 10^3/uL (0.0-0.3); EOSINOPHILS % (AUTO) 1 % (0-10); HEMATOCRIT 34 % (40-54); HEMOGLOBIN 11.3 g/dL (13.3-17.7); LYMPHOCYTES # (AUTO) 2.2 10^3/uL (1.0-4.0); LYMPHOCYTES % (AUTO) 38 % (12-44); MEAN CORPUSCULAR HEMOGLOBIN 31 pg (25-34); MEAN CORPUSCULAR HGB CONC 33 g/dL (32-36); MEAN CORPUSCULAR VOLUME 92 fL (80-99); MEAN PLATELET VOLUME 11.2 fL (9.0-12.2); MONOCYTES # (AUTO) 0.3 10^3/uL (0.0-1.0); MONOCYTES % (AUTO) 5 % (0-12); NEUTROPHILS # (AUTO) 3.2 10^3/uL (1.8-7.8); NEUTROPHILS % (AUTO) 56 % (42-75); PLATELET COUNT 201 10^3/uL (130-400); WHITE BLOOD COUNT 5.7 10^3/uL (4.3-11.0)
[2021-09-03 05:40] LABS: POTASSIUM 3.8 MMOL/L (3.6-5.0)
[2021-09-03 05:42] LABS: CALCIUM 8.7 MG/DL (8.5-10.1)
[2021-09-03 05:46] LABS: CREATININE SERUM 0.94 MG/DL (0.60-1.30)
[2021-09-03] MEDS: inSUlin ASPART (NovoLOG) 1 UNIT/0.01 ML (CHARGE PER UNIT) SC SCH ×7 (06:15→20:06)
[2021-09-03] MEDS ORDERED: CATHETER FLUSH 10 ML SYR IV PRN (07:30)
[2021-09-03] MEDS ORDERED: REGADENOSON 0.4 MG/5 ML SYR (LEXISCAN) IV ONE (07:51)
--- NOTE | 2021-09-03 08:29 | Cardiology Progress Note ---
Progress Note-Cardiology Events since last exam Date Seen by Provider: Sep 03, 2021 Time Seen by Provider: 08:00 Events since last exam I am seeing him due to left arm pain and abnormal electrocardiogram. His arm pain has resolved but his hand still feels numb. He denies dyspnea, palpitations, syncope, or ankle edema. Certain portions of this document may have been dictated utilizing voice recognition technology. Inherent to this technology, typographical and grammatical errors may exist. As much as I am diligent to identify and correct these mistakes, some errors may remain in the document. Vitals Last set of Vitals Signs Vital Signs 09/03/21 07:55 Pulse 69 Resp 18 B/P (MAP) 141/90 (107) Pulse Ox 97 O2 Delivery Room Air Labs Labs Laboratory Tests 09/02/21 09:20 09/03/21 05:00 Exam Vital Signs Vital Signs Date Time Temp Pulse Resp B/P (MAP) Pulse Ox O2 Delivery O2 Flow Rate FiO2 09/03/21 07:55 69 18 141/90 (107) 97 Room Air 09/02/21 20:00 36.4 Physical Exam General: Alert. No acute distress. Eye: No xanthelasma. HENT: Normocephalic. Neck: Jugular venous pressure does not appear elevated. Respiratory: Lungs are clear to auscultation. Respirations are non-labored. Breath sounds are equal. Symmetrical chest wall expansion. Cardiovascular: Normal rate. Regular rhythm. No murmur. No gallop. No edema. Gastrointestinal: Soft. Normal bowel sounds. Skin: Warm. Dry. Neurologic: Alert and oriented to person, place, time. Cranial nerves 3-11 grossly intact. Psychiatric: Cooperative. Appropriate mood & affect. Labs Laboratory Tests Test 09/02/21 09:13 09/02/21 09:20 09/02/21 09:28 09/02/21 11:00 Range/Units Glucometer 159 H 70-110 MG/DL White Blood Count 9.3 4.3-11.0 10^3/uL Red Blood Count 4.61 4.30-5.52 10^6/uL Hemoglobin 14.4 13.3-17.7 g/dL Hematocrit 41 40-54 % Mean Corpuscular Volume 89 80-99 fL Mean Corpuscular Hemoglobin 31 25-34 pg Mean Corpuscular Hemoglobin Concent 35 32-36 g/dL Red Cell Distribution Width 12.5 10.0-14.5 % Platelet Count 293 130-400 10^3/uL Mean Platelet Volume 10.6 9.0-12.2 fL Immature Granulocyte % (Auto) 0 % Neutrophils (%) (Auto) 48 42-75 % Lymphocytes (%) (Auto) 43 12-44 % Monocytes (%) (Auto) 7 0-12 % Eosinophils (%) (Auto) 1 0-10 % Basophils (%) (Auto) 1 0-10 % Neutrophils # (Auto) 4.5 1.8-7.8 10^3/uL Lymphocytes # (Auto) 4.0 1.0-4.0 10^3/uL Monocytes # (Auto) 0.7 0.0-1.0 10^3/uL Eosinophils # (Auto) 0.1 0.0-0.3 10^3/uL Basophils # (Auto) 0.1 0.0-0.1 10^3/uL Immature Granulocyte # (Auto) 0.0 0.0-0.1 10^3/uL Prothrombin Time 12.2 12.2-14.7 SEC INR Comment 0.9 0.8-1.4 Activated Partial Thromboplast Time 22 L 24-35 SEC D-Dimer 0.32 0.00-0.49 UG/ML Sodium Level 138 135-145 MMOL/L Potassium Level 3.3 L 3.6-5.0 MMOL/L Chloride Level 101 98-107 MMOL/L Carbon Dioxide Level 22 21-32 MMOL/L Anion Gap 15 H 5-14 MMOL/L Blood Urea Nitrogen 10 7-18 MG/DL Creatinine 1.15 0.60-1.30 MG/DL Estimat Glomerular Filtration Rate 66 BUN/Creatinine Ratio 9 Glucose Level 153 H 70-105 MG/DL Lactic Acid Level 4.64 *H 0.50-2.00 MMOL/L Calcium Level 10.0 8.5-10.1 MG/DL Corrected Calcium 10.0 8.5-10.1 MG/DL Total Bilirubin 0.5 0.1-1.0 MG/DL Aspartate Amino Transf (AST/SGOT) 17 5-34 U/L Alanine Aminotransferase (ALT/SGPT) 13 0-55 U/L Alkaline Phosphatase 114 40-136 U/L Troponin I < 0.028 <0.028 NG/ML C-Reactive Protein High Sensitivity 0.18 0.00-0.50 MG/DL Total Protein 7.6 6.4-8.2 GM/DL Albumin 4.0 3.2-4.5 GM/DL Lipase 12 8-78 U/L Procalcitonin 0.06 <0.10 NG/ML Influenza Type A (RT-PCR) Not Detected Not Detecte Influenza Type B (RT-PCR) Not Detected Not Detecte SARS-CoV-2 RNA (RT-PCR) Not Detected Not Detecte Urine Color YELLOW Urine Clarity CLEAR Urine pH 6.0 5-9 Urine Specific [place] <=1.005 1.016-1.022 Urine Protein 1+ H NEGATIVE Urine Glucose (UA) 3+ H NEGATIVE Urine Ketones NEGATIVE NEGATIVE Urine Nitrite NEGATIVE NEGATIVE Urine Bilirubin NEGATIVE NEGATIVE Urine Urobilinogen 0.2 < = 1.0 MG/DL Urine Leukocyte Esterase NEGATIVE NEGATIVE Urine RBC (Auto) NEGATIVE NEGATIVE Urine RBC NONE /HPF Urine WBC NONE /HPF Urine Squamous Epithelial Cells 0-2 /HPF Urine Crystals NONE /LPF Urine Bacteria NEGATIVE /HPF Urine Casts NONE /LPF Urine Mucus NEGATIVE /LPF Urine Culture Indicated CULTURE PENDING Test 09/02/21 12:07 09/02/21 14:55 09/02/21 17:14 09/02/21 20:18 Range/Units Lactic Acid Level 2.45 *H 1.72 0.50-2.00 MMOL/L Troponin I < 0.028 <0.028 NG/ML Glucometer 183 H 208 H 70-110 MG/DL Test 09/02/21 20:19 09/02/21 20:55 09/03/21 05:00 Range/Units Glucometer 217 H 70-110 MG/DL Troponin I < 0.028 <0.028 NG/ML White Blood Count 5.7 4.3-11.0 10^3/uL Red Blood Count 3.69 L 4.30-5.52 10^6/uL Hemoglobin 11.3 #L 13.3-17.7 g/dL Hematocrit 34 L 40-54 % Mean Corpuscular Volume 92 80-99 fL Mean Corpuscular Hemoglobin 31 25-34 pg Mean Corpuscular Hemoglobin Concent 33 32-36 g/dL Red Cell Distribution Width 12.7 10.0-14.5 % Platelet Count 201 130-400 10^3/uL Mean Platelet Volume 11.2 9.0-12.2 fL Immature Granulocyte % (Auto) 0 % Neutrophils (%) (Auto) 56 42-75 % Lymphocytes (%) (Auto) 38 12-44 % Monocytes (%) (Auto) 5 0-12 % Eosinophils (%) (Auto) 1 0-10 % Basophils (%) (Auto) 0 0-10 % Neutrophils # (Auto) 3.2 1.8-7.8 10^3/uL Lymphocytes # (Auto) 2.2 1.0-4.0 10^3/uL Monocytes # (Auto) 0.3 0.0-1.0 10^3/uL Eosinophils # (Auto) 0.1 0.0-0.3 10^3/uL Basophils # (Auto) 0.0 0.0-0.1 10^3/uL Immature Granulocyte # (Auto) 0.0 0.0-0.1 10^3/uL Sodium Level 139 135-145 MMOL/L Potassium Level 3.8 3.6-5.0 MMOL/L Chloride Level 107 98-107 MMOL/L Carbon Dioxide Level 21 21-32 MMOL/L Anion Gap 11 5-14 MMOL/L Blood Urea Nitrogen 9 7-18 MG/DL Creatinine 0.94 0.60-1.30 MG/DL Estimat Glomerular Filtration Rate 83 BUN/Creatinine Ratio 10 Glucose Level 210 H 70-105 MG/DL Calcium Level 8.7 8.5-10.1 MG/DL Triglycerides Level 254 H <150 MG/DL Cholesterol Level 165 < 200 MG/DL LDL Cholesterol Direct 96 1-129 MG/DL VLDL Cholesterol 51 H 5-40 MG/DL HDL Cholesterol 34 L 40-60 MG/DL Diagnosis/Problems Diagnosis/Problems (1) Abnormal electrocardiogram Assessment & Plan: He has a right bundle branch block pattern on his electrocardiogram but without ischemic changes. He had negative troponin levels. We will await the results of the nuclear stress test and echocardiogram. If these are unremarkable, from a cardiac standpoint he can be discharged home. I will plan to see him in the office in 1 month for follow-up. (2) Left arm pain Assessment & Plan: He had left arm pain of unclear etiology. As above, we will await the results of the stress test and echocardiogram. He should continue on aspirin and statin medication. (3) Primary hypertension Assessment & Plan: His blood pressure is reasonably well controlled with his outpatient dose of lisinopril. This should be continued. (4) Mixed hyperlipidemia Assessment & Plan: His LDL level looks good on the current dose of atorvastatin. (5) Type 2 diabetes mellitus without complication Assessment & Plan: This is being managed by the hospitalist. I did take the liberty of adding a hemoglobin A1c level to his admission blood sample and this is pending. JAY EM JR, MD Sep 03, 2021 08:29
[2021-09-03] MEDS ORDERED: inSUlin ASPART (NovoLOG) 1 UNIT/0.01 ML (CHARGE PER UNIT) SC SCH (09:00)
--- NOTE | 2021-09-03 10:08 | NUCLEAR STRESS TEST ---
REGADENOSON NUCLEAR STRESS Date of procedure: 09/03/2021. Primary care provider: No local physician Admitting physician: Wilder Feldman Jr., MD. INDICATION: Abnormal electrocardiogram. BASELINE ELECTROCARDIOGRAM: Sinus rhythm with right bundle branch block. STRESS TEST PROCEDURE: The patient was administered 0.4 mg of intravenous Regadenoson. The resting heart rate was 73 bpm and the peak heart rate was 105 bpm. The resting blood pressure was 155/94 mmHg and the minimum blood pressure was 141/90 mmHg. This represents a normal heart rate and a normal blood pressure response to Regadenoson. The test was stopped due to the protocol. There was no chest discomfort during the test. There were no arrhythmias during the test. There were no significant stress induced electrocardiogram changes. NUCLEAR PROCEDURE: The patient was administered 10.4 mCi of intravenous technetium 99m Tetrofosmin at rest for the rest images. The patient was subsequently administered 31.9 mCi of intravenous technetium 99m Tetrofosmin at peak stress for the stress images. Following an appropriate wait after each injection, imaging was obtained. The images were subsequently processed and reformatted in the usual views. Gated imaging was obtained. The image quality was adequate but with a mild degree of gastrointestinal attenuation artifact. CT attenuation could not be performed due to patient having claustrophobia. NUCLEAR RESULTS: There was normal myocardial perfusion in all segments without evidence of infarction or ischemia. There was normal left ventricular chamber size with an end-diastolic volume of 92 mL and an end-systolic volume of 32 mL. There was borderline transient ischemic dilatation. The TID ratio was borderline elevated 1.25. There was normal wall motion in all segments with a calculated ejection fraction of 65%. IMPRESSION: 1. Normal heart rate and blood pressure response to regadenoson. 2. There was no chest discomfort, arrhythmias, or electrocardiogram changes during the test. 3. There was normal myocardial perfusion in all segments without evidence of infarction or ischemia. 4. The TID ratio was borderline elevated 1.25. 5. There was normal wall motion in all segments with a calculated ejection fraction of 65%. Certain portions of this document may have been dictated utilizing voice recognition technology. Inherent to this technology, typographical and grammatical errors may exist. As much as I am diligent to identify and correct these mistakes, some errors may remain in the document. WILDER FELDMAN JR, MD Sep 03, 2021 10:08
[2021-09-03] MEDS: ASPIRIN E.C. 81 MG (ECOTRIN) TAB PO SCH (10:22)
[2021-09-03] MEDS: PANTOPRAZOLE 40 MG (PROTONIX) VIAL IV SCH (10:22)
[2021-09-03] MEDS: lisINopril 10 MG (PRINIVIL) TABLET PO SCH (10:22)
[2021-09-03] MEDS: PIOGLITAZONE 30MG (ACTOS) TAB PO SCH (10:22)
--- NOTE | 2021-09-03 12:57 | Progress Note - Surgery ---
NICOLEYOANA MIRELES 09/03/21 1257: Subjective Date Seen by a Provider: Sep 03, 2021 Time Seen by a Provider: 12:51 Subjective/Events-last exam Kartik peoples is laying in bed supine and awake. He states that he is feeling okay, and denies any chest pain, fever, SOA, chills, N/V, or abdominal pain. Discussed outpatient EGD/colonoscopy in 6-8 weeks; patient in understanding and agreement. Review of Systems General: No Chills, No Fatigue, No Malaise HEENT: No Head Aches, No Visual Changes Pulmonary: No Dyspnea, No Cough Cardiovascular: No: Chest Pain, Palpitations Gastrointestinal: No: Nausea, Vomiting Genitourinary: No Dysuria, No Frequency Musculoskeletal: No: arm pain, leg pain Neurological: Numbness (Mild numbness and tingling in left upper extremity, localized to fingers); No: Weakness Focused Exam Lactate Level 09/02/21 09:20: Lactic Acid Level 4.64*H 09/02/21 12:07: Lactic Acid Level 2.45*H 09/02/21 14:55: Lactic Acid Level 1.72 Respiratory: Chest Non Tender, No Accessory Muscle Use Cardiovascular: Regular Rate, Rhythm, No Edema, Normal Peripheral Pulses Capillary Refill: Less Than 3 Seconds Peripheral Pulses: 2+ Radial Pulses (R), 2+ Radial Pulses (L) Skin: normal color, warm/dry Objective Exam Vital Signs Date Time Temp Pulse Resp B/P (MAP) Pulse Ox O2 Delivery O2 Flow Rate FiO2 09/03/21 11:38 36.1 75 16 168/95 (119) 99 Room Air 09/03/21 10:35 80 25 97 09/03/21 10:05 86 22 96 09/03/21 09:35 76 17 96 09/03/21 09:20 78 13 97 09/03/21 09:19 76 12 149/79 (105) 09/03/21 08:00 36.6 09/03/21 08:00 Room Air 09/03/21 07:55 69 18 141/90 (107) 97 Room Air 09/03/21 07:00 67 09/03/21 06:50 65 16 09/03/21 04:00 Room Air 09/03/21 04:00 68 12 117/73 (88) 98 Room Air 09/03/21 01:00 76 09/03/21 00:00 Room Air 09/03/21 00:00 72 12 109/55 (73) 98 Room Air 09/02/21 20:00 36.4 70 10 119/75 (90) 95 Room Air 09/02/21 20:00 Room Air 09/02/21 19:00 78 09/02/21 16:56 Room Air 09/02/21 15:55 36.5 72 20 130/84 (99) 99 Room Air 09/02/21 14:45 Room Air 09/02/21 14:13 72 11 131/78 (95) 99 Room Air 09/02/21 14:13 72 11 131/78 (95) 99 Room Air 09/02/21 14:08 75 09/02/21 13:51 76 13 120/75 98 Room Air I & O 09/03/21 07:00 Intake Total 4600 ml Output Total 900 ml Balance 3700 ml Capillary Refill : Less Than 3 Seconds General Appearance: No Apparent Distress, WD/WN HEENT: PERRL/EOMI, Normal ENT Inspection Neck: Full Range of Motion, Normal Inspection Respiratory: Chest Non Tender, No Accessory Muscle Use Cardiovascular: Regular Rate, Rhythm, Normal Peripheral Pulses Peripheral Pulses: 2+ Dorsalis Pedis (R), 2+ Left Dors-Pedis (L), 2+ Radial Pulses (R), 2+ Radial Pulses (L) Gastrointestinal: normal bowel sounds, non tender, soft Extremity: Normal Capillary Refill, Normal Inspection Neurologic/Psychiatric: Alert, Oriented x3, Other (Residual numbness and tingling in LUE, localized to fingers) Skin: Normal Color, Warm/Dry Results Lab Laboratory Tests 09/02/21 14:55: Lactic Acid Level 1.72, Troponin I < 0.028 09/02/21 17:14: Glucometer 183H 09/02/21 20:18: Glucometer 208H 09/02/21 20:19: Glucometer 217H 09/02/21 20:55: Troponin I < 0.028 09/03/21 05:00: White Blood Count 5.7, Red Blood Count 3.69L, Hemoglobin 11.3#L, Hematocrit 34L, Mean Corpuscular Volume 92, Mean Corpuscular Hemoglobin 31, Mean Corpuscular Hemoglobin Concent 33, Red Cell Distribution Width 12.7, Platelet Count 201, Mean Platelet Volume 11.2, Immature Granulocyte % (Auto) 0, Neutrophils (%) (Auto) 56, Lymphocytes (%) (Auto) 38, Monocytes (%) (Auto) 5, Eosinophils (%) (Auto) 1, Basophils (%) (Auto) 0, Neutrophils # (Auto) 3.2, Lymphocytes # (Auto) 2.2, Monocytes # (Auto) 0.3, Eosinophils # (Auto) 0.1, Basophils # (Auto) 0.0, Immature Granulocyte # (Auto) 0.0, Sodium Level 139, Potassium Level 3.8, Chloride Level 107, Carbon Dioxide Level 21, Anion Gap 11, Blood Urea Nitrogen 9, Creatinine 0.94, Estimat Glomerular Filtration Rate 83, BUN/Creatinine Ratio 10, Glucose Level 210H, Calcium Level 8.7, Triglycerides Level 254H, Cholesterol Level 165, LDL Cholesterol Direct 96, VLDL Cholesterol 51H, HDL Cholesterol 34L 09/03/21 10:21: Glucometer 125H Meds Item Value Date Time Pioglitazone HCl 30 mg 09/03/21 0900 (Actos Tablet) DAILY/PO 09/03/21 1022 Lisinopril 10 mg 09/03/21 0900 (Zestril Tablet) DAILY/PO 09/03/21 1022 Atorvastatin 80 mg 09/03/21 0900 Calcium DAILY/PO 09/03/21 1022 (Lipitor Tablet) Aspirin 81 mg 09/03/21 0900 (Ecotrin Tablet) DAILY/PO 09/03/21 1022 Pantoprazole 40 mg 09/03/21 0900 (Protonix DAILY/IV 09/03/21 1022 Injection) Sodium Chloride 10-40 ML 09/03/21 0730 (Catheter Flush NEEDED PRN/IV 09/03/21 0722 Syringe) Insulin Aspart SLIDING SCALE B BLOO... 09/02/21 2000 (NovoLOG (CHARGE [id number] PER UNIT)) Insulin Detemir 40 unit 09/02/21 2100 (LeveMIR (PER BID/SQ UNIT)) Insulin Aspart 10 unit 09/02/21 1700 (NovoLOG (CHARGE AC/SC 09/03/21 0615 PER UNIT)) Acetaminophen 650 mg 09/02/21 1500 (Tylenol Tablet) Q6H PRN/PO Ondansetron HCl 8 mg 09/02/21 1500 (Zofran Q6H PRN/IVP Injection (Sdv)) Morphine Sulfate 4 mg 09/02/21 1445 (morphine Q3H PRN/IV INJECTION) Nitroglycerin 0.4 mg 09/02/21 1445 (Nitrostat 0.4 UD PRN/SL Mg Btl 25'S) Lactated Ringer's 1,000 ml @ 100 mls/hr 09/02/21 1430 Miscellaneous 09/02/21 1015 (Hold Metformin- UD/IV Contrast Received) Assessment/Plan Assessment/Plan Assessment/Plan 1. Dehydration -Lactic acid currently 1.7, which is decreased from 4.64 on 09/02 -LR already running at 100 ml/hr 2. Mild wall thickening of Ascending colon on CT, concerning for possible colitis -Asymptomatic -Hold off on antibiotics, and rehydrate. EGD/Colonoscopy in 6 weeks outpatient. 3. ACS -Evaluated by cardiology -Most recent EKG completed this morning (09/03) - Aspirin 81 mg QD -Nitro PRN 3. Tourette Syndrome 4. HLD 5. HTN -Echo completed this morning (09/03) 6. IDDM Clinical Quality Measures Stroke: Date of last known well: Sep 01, 2021 Time of last known well: 19:00 Symptoms onset unknown: No SHEA LEROY DO 09/03/21 2000: Subjective Subjective/Events-last exam Patient feeling well today. He has no abdominal pain. He has had no nausea and vomiting. Patient with no new complaints at this time. Denies any nausea vomiting fever sweats chills shortness of breath or chest pain. Objective Exam General Appearance: No Apparent Distress, WD/WN HEENT: PERRL/EOMI, Normal ENT Inspection Neck: Full Range of Motion, Non Tender Respiratory: Chest Non Tender, No Accessory Muscle Use, No Respiratory Distress Cardiovascular: Regular Rate, Rhythm, No JVD Gastrointestinal: non tender, soft Extremity: Normal Capillary Refill, Non Tender Neurologic/Psychiatric: Alert, Oriented x3 Skin: Normal Color, Warm/Dry Lymphatic: No Adenopathy Assessment/Plan Assessment/Plan Assessment/Plan Possible colitis of a sending colon. His abdomen is nontender. He has never had a colonoscopy. Recommend having colonoscopy and possible EGD next 6 to 8 weeks for further evaluation. Patient would like to do this when he gets home. Patient with nausea and vomiting this is resolved. Patient likely dehydrated he had elevated lactic acid it was back to normal. Patient diet as tolerates. Supervisory-Addendum Brief Verification & Attestation Participated in pt care: history, MDM, physical Personally performed: exam, history, MDM, supervision of care Care discussed with: Medical Student Procedures: n/a Results interpretation: Verified all documentation Verification and Attestation of Medical Student E/M Service A medical student performed and documented this service in my presence. I reviewed and verified all information documented by the medical student and made modifications to such information, when appropriate. I personally performed the physical exam and medical decision making. Shea Leroy, Sep 03, 2021,19:59 YOANA MIJARES Sep 03, 2021 12:57 SHEA LEROY DO Sep 03, 2021 20:00
--- NOTE | 2021-09-03 21:59 | History & Physical-Hospitalist ---
History of Present Illness Source: patient Exam Limitations: no limitations Date Seen 09/03/21 Attending Physician Suzy Salmon MD PCP No,Local Physician Referring Physician Date of Admission Sep 02, 2021 at 12:45 Home Medications & Allergies Home Medications Reviewed patient Home Medication Reconciliation performed by pharmacy medication reconciliations wildlife biology technician and/or nursing. Patients Allergies have been reviewed. Allergies Allergies Coded Allergies No Known Drug Allergies (Unverified02/21/11) Past Tdeuyig-Vdyozh-Jeqwku Hx Patient Social History Tobacco Use?: No Smoking Status: Never a Smoker Use of E-Cig and/or Vaping dev: No Substance use?: No Alcohol Use?: No Pt feels they are or have been: Yes Immunizations Up To Date First/Initial COVID19 Vaccinat: DECEMBER 2020 Second COVID19 Vaccination Inocente: DECEMBER 2020 Tetanus Booster (TDap): Unknown Current Status Advance Directives: No Communicates: Verbally Primary Language: [place] Preferred Spoken Language: [place] Is interpretation needed?: No Sensory deficits: Vision impairment Implanted or Applied Medical D: Orthopedic hardware Past Medical History Surgeries: Pancreatic (Stone removal) High Cholesterol, Hypertension Pancreatitis Diabetes, Insulin dep Family Medical History No Pertinent Family Hx Physical Exam Physical Exam Vital Signs Vital Signs - First Documented 09/02/21 09:04 Temp 36.0 Pulse 78 Resp 16 B/P (MAP) 91/70 (77) Pulse Ox 96 O2 Delivery Room Air Capillary Refill : Less Than 3 Seconds Height, Weight, BMI Height: '" Weight: lbs. oz. kg; 23.46 BMI Method: Results Results/Procedures Labs Laboratory Tests 09/02/21 09:20 09/03/21 05:00 Patient resulted labs reviewed. Clinical Quality Measures Stroke: Date of last known well: Sep 01, 2021 Time of last known well: 19:00 Symptoms onset unknown: No SUZY SALMON MD Sep 03, 2021 21:59
[2021-09-04] VITALS: BP 106/75
[2021-09-04 04:00] VITALS: BP 124/89
[2021-09-04] MEDS: LACTATED RINGERS 1,000 ML IV SCH (06:54)
[2021-09-04] MEDS: inSUlin ASPART (NovoLOG) 1 UNIT/0.01 ML (CHARGE PER UNIT) SC SCH ×2 (07:37)
--- NOTE | 2021-09-04 07:48 | History & Physical-Hospitalist ---
History of Present Illness HPI/Chief Complaint Kartik Martínez is a 56 year old male with PMH Tourettes, HTN, HLD, T2DM, who presented with left arm pain and numbness. He also has pain in his shoulder which is chronic due to arthritis. He denies any chest pain. He denies shortness of breath. He denies nausea. He has not been diaphoretic. He is diabetic and his blood sugars are poorly controlled. Source: patient Exam Limitations: no limitations Date Seen 09/04/21 Time Seen by a Provider: 09:10 Attending Physician Juan Salmon MD PCP No,Local Physician Referring Physician Date of Admission Sep 02, 2021 at 12:45 Home Medications & Allergies Home Medications Reviewed patient Home Medication Reconciliation performed by pharmacy medication reconciliations detail technician and/or nursing. Patients Allergies have been reviewed. Allergies Allergies Coded Allergies No Known Drug Allergies (Unverified02/21/11) Past Rhyazld-Ynydji-Nnfybl Hx Patient Social History Tobacco Use?: No Smoking Status: Never a Smoker Use of E-Cig and/or Vaping dev: No Substance use?: No Alcohol Use?: No Pt feels they are or have been: Yes Immunizations Up To Date First/Initial COVID19 Vaccinat: DECEMBER 2020 Second COVID19 Vaccination Inocente: DECEMBER 2020 Tetanus Booster (TDap): Unknown Current Status Advance Directives: No Communicates: Verbally Primary Language: Tongan Preferred Spoken Language: Tongan Is interpretation needed?: No Sensory deficits: Vision impairment Implanted or Applied Medical D: Orthopedic hardware Past Medical History Surgeries: Pancreatic (Stone removal) High Cholesterol, Hypertension Pancreatitis Diabetes, Insulin dep Family Medical History No Pertinent Family Hx Review of Systems Constitutional: no symptoms reported EENTM: no symptoms reported Respiratory: no symptoms reported Cardiovascular: no symptoms reported Gastrointestinal: no symptoms reported Genitourinary: no symptoms reported Musculoskeletal: no symptoms reported Skin: no symptoms reported Psychiatric/Neurological: Numbness, Paresthesia Physical Exam Physical Exam Vital Signs Vital Signs - First Documented 09/02/21 09:04 Temp 36.0 Pulse 78 Resp 16 B/P (MAP) 91/70 (77) Pulse Ox 96 O2 Delivery Room Air Capillary Refill : Less Than 3 Seconds Height, Weight, BMI Height: '" Weight: lbs. oz. kg; 23.46 BMI Method: General Appearance: No Apparent Distress, WD/WN HEENT: PERRL/EOMI, Pharynx Normal Neck: Normal Inspection, Supple Respiratory: Lungs Clear, Normal Breath Sounds, No Respiratory Distress Cardiovascular: Regular Rate, Rhythm, No Edema, No Murmur Gastrointestinal: Normal Bowel Sounds, Non Tender, Soft Extremity: Normal Inspection, Non Tender, No Pedal Edema Neurologic/Psychiatric: Alert, Oriented x3, No Motor/Sensory Deficits, Normal Mood/Affect Skin: Normal Color, Warm/Dry Results Results/Procedures Labs Laboratory Tests 09/02/21 09:20 09/03/21 05:00 Patient resulted labs reviewed. Imaging: Reviewed Imaging Report Assessment/Plan Admission Diagnosis Atypical chest pain Admission Status: Observation Assessment and Plan Atypical chest pain Cardiology consulted Troponins negative Stress test done, await results Further evaluation per Cardiology Ascending colon thickening Asymptomatic Possibly due to decompression Surgery consulted Planning for endoscopy in ~6 weeks Dehydration IV fluids Uncontrolled type II diabetes mellitus Continue insulin A1C pending HTN HLD Continue home meds Diagnosis/Problems Diagnosis/Problems (1) Atypical chest pain Status: Acute (2) Left arm pain Status: Acute (3) Dehydration Status: Acute (4) Mixed hyperlipidemia Status: Acute (5) Type 2 diabetes mellitus without complication Status: Acute Qualifiers: Diabetes mellitus senior care insulin use: with community relations liaison use Qualified Codes: E11.9 - Type 2 diabetes mellitus without complications; 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
[2021-09-04 08:42] VITALS: BP 147/90
[2021-09-04] MEDS: PANTOPRAZOLE 40 MG (PROTONIX) VIAL IV SCH (08:48)
[2021-09-04] MEDS: ASPIRIN E.C. 81 MG (ECOTRIN) TAB PO SCH (08:48)
[2021-09-04] MEDS: lisINopril 10 MG (PRINIVIL) TABLET PO SCH (08:48)
[2021-09-04] MEDS: PIOGLITAZONE 30MG (ACTOS) TAB PO SCH (08:48)
--- NOTE | 2021-09-04 08:50 | Progress Note - Surgery ---
LEONDARIEN 09/04/21 0850: Subjective Date Seen by a Provider: Sep 04, 2021 Time Seen by a Provider: 07:27 Subjective/Events-last exam Patient was laying in bed, watching tv, and just finished breakfast when I visited. Ate sausage, eggs, biscuit, and hot cocoa this morning with no issues. Pt said he feels well and is having no other complaints. Also reported that he had a normal looking bowel movement last night. Pt is still aware of the need to get an outpatient EGD/colonoscopy in 6-8 weeks. Review of Systems General: No Chills, No Night Sweats, No Fatigue, No Malaise HEENT: No Head Aches, No Visual Changes Pulmonary: No Dyspnea, No Cough Cardiovascular: No: Chest Pain, Palpitations, Edema Gastrointestinal: No: Nausea, Vomiting, Abdominal Pain, Diarrhea Genitourinary: No Dysuria, No Frequency Musculoskeletal: No: neck pain, shoulder pain Focused Exam Lactate Level 09/02/21 09:20: Lactic Acid Level 4.64*H 09/02/21 12:07: Lactic Acid Level 2.45*H 09/02/21 14:55: Lactic Acid Level 1.72 Objective Exam Vital Signs Date Time Temp Pulse Resp B/P (MAP) Pulse Ox O2 Delivery O2 Flow Rate FiO2 09/04/21 07:00 71 09/04/21 04:00 Room Air 09/04/21 04:00 36.7 63 14 124/89 (101) 95 Room Air 09/04/21 01:00 70 09/04/21 00:00 36.4 70 14 106/75 (85) 93 Room Air 09/04/21 00:00 Room Air 09/03/21 20:00 Room Air 09/03/21 19:00 80 09/03/21 16:43 36.2 80 17 136/98 (111) 100 Room Air 09/03/21 16:30 77 14 99 Room Air 09/03/21 16:15 75 19 98 Room Air 09/03/21 16:00 76 19 96 Room Air 09/03/21 16:00 Room Air 09/03/21 15:45 78 18 97 Room Air 09/03/21 15:30 84 18 98 Room Air 09/03/21 15:15 78 14 97 Room Air 09/03/21 15:07 75 18 136/98 (114) Room Air 09/03/21 13:00 81 09/03/21 12:16 78 14 100 09/03/21 12:01 75 100 09/03/21 12:00 Room Air 09/03/21 12:00 Room Air 09/03/21 11:38 36.1 75 16 168/95 (119) 99 Room Air 09/03/21 11:31 72 23 100 09/03/21 11:28 74 15 168/95 (126) 09/03/21 11:16 73 10 100 09/03/21 10:35 80 25 97 09/03/21 10:05 86 22 96 09/03/21 09:35 76 17 96 09/03/21 09:20 78 13 97 09/03/21 09:19 76 12 149/79 (105) I & O 09/04/21 07:00 Intake Total 640 ml Output Total 650 ml Balance -10 ml Capillary Refill : Less Than 3 Seconds General Appearance: No Apparent Distress, WD/WN HEENT: PERRL/EOMI Neck: Full Range of Motion, Normal Inspection, Non Tender, Supple Respiratory: Chest Non Tender, Lungs Clear, Normal Breath Sounds, No Accessory Muscle Use, No Respiratory Distress Cardiovascular: Regular Rate, Rhythm, No Edema, No Murmur Peripheral Pulses: 2+ Dorsalis Pedis (R), 2+ Left Dors-Pedis (L), 2+ Radial Pulses (R), 2+ Radial Pulses (L) Gastrointestinal: normal bowel sounds, non tender, soft Extremity: Normal Inspection, Non Tender, No Pedal Edema Neurologic/Psychiatric: Alert, Oriented x3, Normal Mood/Affect Skin: Normal Color, Warm/Dry Lymphatic: No Adenopathy (Cervical and supraclavicular) Results Lab Laboratory Tests 09/03/21 10:21: Glucometer 125H 09/03/21 14:49: Glucometer 111H 09/03/21 15:53: Glucometer 171H 09/03/21 19:52: Glucometer 204H 09/04/21 06:51: Glucometer 170H Microbiology 09/02/21 Blood Culture - Preliminary, Resulted No growth 09/02/21 Urine Culture - Preliminary, Resulted Culture In Progress Assessment/Plan Assessment/Plan Assessment/Plan Possible colitis of ascending colon Abdomen nontender. He has never had a colonoscopy. Pt is aware of previous discussion to have a colonoscopy and possible EGD next 6 to 8 weeks for further evaluation. Patient would like to do this when he gets home. Nausea and Vomiting resolved Patient had a full meal this morning Elevated Lactic Acid Likely due to dehydration. Lactate now normal. Clinical Quality Measures Stroke: Date of last known well: Sep 01, 2021 Time of last known well: 19:00 Symptoms onset unknown: No JORGE GARCIA DO 09/04/21 1219: Subjective Time Seen by a Provider: 09:58 Subjective/Events-last exam Pt seen as he was leaving the hospital, no changes and tolerating diet. Review of Systems General: No Chills, No Night Sweats Pulmonary: No Dyspnea, No Cough Cardiovascular: No: Chest Pain, Palpitations Gastrointestinal: No: Nausea, Vomiting, Abdominal Pain, Diarrhea Objective Exam General Appearance: No Apparent Distress, WD/WN Respiratory: Lungs Clear, Normal Breath Sounds, No Accessory Muscle Use, No Respiratory Distress Cardiovascular: Regular Rate, Rhythm, No Murmur Gastrointestinal: non tender, soft, no organomegaly Neurologic/Psychiatric: Alert, Oriented x3, Normal Mood/Affect Assessment/Plan Assessment/Plan Assessment/Plan Possible colitis of ascending colon Abdomen nontender. He has never had a colonoscopy. Pt is aware of previous discussion to have a colonoscopy and possible EGD next 6 to 8 weeks for further evaluation. Patient would like to do this when he gets home. Nausea and Vomiting resolved Patient had a full meal this morning Elevated Lactic Acid Likely due to dehydration. Lactate now normal. Supervisory-Addendum Brief Verification & Attestation Participated in pt care: history, MDM, physical Personally performed: exam, history, MDM, supervision of care Care discussed with: Medical Student Procedures: n/a Verification and Attestation of Medical Student E/M Service A medical student performed and documented this service. I then reviewed and verified all information documented by the medical student and made modifications to such information, when appropriate. I personally performed a physical exam, medical decision making and then discussed any differences between the notes and made revisions as necessary to create one note. Jorge Garcia , 09/04/21 , 12:19 DARIEN QUINTERO Sep 04, 2021 08:50 JORGE GARCIA DO Sep 04, 2021 12:19
--- NOTE | 2021-09-04 09:29 | Cardiology Progress Note ---
Progress Note-Cardiology Events since last exam Date Seen by Provider: Sep 04, 2021 Time Seen by Provider: 09:24 Events since last exam I was initially seeing him for left arm pain which has resolved. He still has some occasional tingling in his left hand. He denies dyspnea, palpitations, syncope, or ankle edema. He wants to go home today. He will be going back to stay with his sister who lives locally. Sometime next week he may go back home to [place], [place]. Certain portions of this document may have been dictated utilizing voice recognition technology. Inherent to this technology, typographical and grammatical errors may exist. As much as I am diligent to identify and correct these mistakes, some errors may remain in the document. Vitals Last set of Vitals Signs Vital Signs 09/04/21 08:42 Temp 36.0 Pulse 80 Resp 18 B/P (MAP) 147/90 (109) Pulse Ox 94 O2 Delivery Room Air Exam Vital Signs Vital Signs Date Time Temp Pulse Resp B/P (MAP) Pulse Ox O2 Delivery O2 Flow Rate FiO2 09/04/21 08:42 36.0 80 18 147/90 (109) 94 Room Air Physical Exam General: Alert. No acute distress. Eye: No xanthelasma. HENT: Normocephalic. Neck: Jugular venous pressure does not appear elevated. Respiratory: Lungs are clear to auscultation. Respirations are non-labored. Breath sounds are equal. Symmetrical chest wall expansion. Cardiovascular: Normal rate. Regular rhythm. No murmur. No gallop. No edema. Gastrointestinal: Soft. Normal bowel sounds. Skin: Warm. Dry. Neurologic: Alert and oriented to person, place, time. Cranial nerves 3-11 grossly intact. Psychiatric: Cooperative. Appropriate mood & affect. Labs Laboratory Tests Test 09/03/21 10:21 09/03/21 14:49 09/03/21 15:53 09/03/21 19:52 Range/Units Glucometer 125 H 111 H 171 H 204 H 70-110 MG/DL Test 09/04/21 06:51 Range/Units Glucometer 170 H 70-110 MG/DL Diagnosis/Problems Diagnosis/Problems (1) Abnormal electrocardiogram Assessment & Plan: He has a right bundle branch block pattern on his electrocardiogram but without ischemic changes. He had negative troponin levels. His stress test was normal. From a cardiac standpoint he can be discharged home. I initially planned to see him in the office for follow-up without realizing that he lives in [place], [place]. I told him he can follow-up with his primary provider when he returns home. (2) Left arm pain Status: Acute Assessment & Plan: He had left arm pain of unclear etiology. I suspect this was related to a noncardiac etiology. This is now resolved. (3) Thoracic aortic aneurysm without rupture Assessment & Plan: This was an incidental finding on his echocardiogram. This is in a mild range but will need to be followed longitudinally. (4) Primary hypertension Assessment & Plan: His blood pressure is reasonably well controlled with his outpatient dose of lisinopril which should be continued at discharge. (5) Mixed hyperlipidemia Status: Acute Assessment & Plan: His LDL level looks good on the current dose of atorvastatin which should also be continued at discharge. (6) Type 2 diabetes mellitus without complication Status: Acute Assessment & Plan: This is being managed by the hospitalist. His HbA1c was 15. This is markedly elevated. He will need to have this addressed by his primary provider when he returns home to [facility]. 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
--- NOTE | 2021-09-04 11:58 | Discharge Summary ---
Discharge Summary Hospital Course Problems/Dx: (1) Abnormal electrocardiogram (2) Left arm pain Status: Acute (3) Thoracic aortic aneurysm without rupture (4) Primary hypertension (5) Mixed hyperlipidemia Status: Acute (6) Type 2 diabetes mellitus without complication Status: Acute Qualifiers: Qualified Codes: E11.9 - Type 2 diabetes mellitus without complications; Z79.4 - prison (current) use of insulin Hospital Course Date of Admission: Sep 02, 2021 at 12:45 Admission Diagnosis : Family Physician/Provider: No,Local Physician Date of Discharge: 09/04/21 Discharge Diagnosis: [ ] Hospital Course: [ ] Labs and Pending Lab Test: Laboratory Tests 09/03/21 14:49: Glucometer 111H 09/03/21 15:53: Glucometer 171H 09/03/21 19:52: Glucometer 204H 09/04/21 06:51: Glucometer 170H Microbiology 09/02/21 Blood Culture - Preliminary, Resulted No growth 09/02/21 Urine Culture - Preliminary, Resulted Culture In Progress Home Meds Active Reported Pioglitazone HCl 30 Mg Tablet 30 Mg PO DAILY Aspirin EC (Aspirin) 81 Mg Tablet. 81 Mg PO DAILY Atorvastatin Calcium 80 Mg Tablet 80 Mg PO DAILY LAST FILLED 04-05-2021 #90/90 DAY SUPPLY Pantoprazole Sodium 40 Mg Tablet.dr 40 Mg PO DAILY Farxiga (Dapagliflozin Propanediol) 10 Mg Tablet 10 Mg PO DAILY Lantus Solostar (Insulin Glargine,Hum.rec.anlog) 100 Unit/1 Ml Insuln.pen 40 Units SC BID Humalog Kwikpen (Insulin Lispro) 100 Unit/1 Ml Insuln.pen 10 Unit SQ 1200,1800 AC Humalog Kwikpen (Insulin Lispro) 100 Unit/1 Ml Insuln.pen 20 Units SC 0700 BEFORE MEAL Diclofenac Sodium 100 Gm Gel..gram. 1 Applic TOP QID PRN APPLIES TO RIGHT SHOULDER Lisinopril 10 Mg Tablet 10 Mg PO DAILY Discharge Physical Examination Vital Signs Vital Signs Date Time Temp Pulse Resp B/P (MAP) Pulse Ox O2 Delivery O2 Flow Rate FiO2 09/04/21 08:42 36.0 80 18 147/90 (109) 94 Room Air Allergies: Coded Allergies: No Known Drug Allergies (Unverified , 02/21/11) Discharge Summary Date of Admission Sep 02, 2021 at 12:45 Date of Discharge Sep 04, 2021 at 09:55 Admission Diagnosis Atypical chest pain Discharge Diagnosis Atypical chest pain Cardiology consulted Troponins negative Stress test done, await results Further evaluation per Cardiology Ascending colon thickening Asymptomatic Possibly due to decompression Surgery consulted Planning for endoscopy in ~6 weeks Dehydration IV fluids Uncontrolled type II diabetes mellitus Continue insulin A1C pending HTN HLD Continue home meds (1) Abnormal electrocardiogram Assessment & Plan: He has a right bundle branch block pattern on his electrocardiogram but without ischemic changes. He had negative troponin levels. His stress test was normal. From a cardiac standpoint he can be discharged home. I initially planned to see him in the office for follow-up without realizing that he lives in [place], [place]. I told him he can follow-up with his primary provider when he returns home. (2) Left arm pain Status: Acute Assessment & Plan: He had left arm pain of unclear etiology. I suspect this was related to a noncardiac etiology. This is now resolved. (3) Thoracic aortic aneurysm without rupture Assessment & Plan: This was an incidental finding on his echocardiogram. This is in a mild range but will need to be followed longitudinally. (4) Primary hypertension Assessment & Plan: His blood pressure is reasonably well controlled with his outpatient dose of lisinopril which should be continued at discharge. (5) Mixed hyperlipidemia Status: Acute Assessment & Plan: His LDL level looks good on the current dose of atorvastatin which should also be continued at discharge. (6) Type 2 diabetes mellitus without complication Status: Acute Assessment & Plan: This is being managed by the hospitalist. His HbA1c was 15. This is markedly elevated. He will need to have this addressed by his primary provider when he returns home to [facility]. 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
== END 2021-09-04 09:29 | disposition home or self-care (01) ==
LOC: EDUNIT# 08:48 → ER 08:53 → CSD 12:45 → UNDOADMOB 12:45 → CSD 14:15 → UNDODISOB 09-04 09:55
PROVIDERS: ADMIT Internal Medicine; ATTEND Internal Medicine
DX: I24.9 Acute ischemic heart disease, unspecified (principal); M79.602 Pain in left arm; K63.89 Other specified diseases of intestine; E86.0 Dehydration; E11.9 Type 2 diabetes mellitus without complications; Z79.4 Long term (current) use of insulin; I71.2 Thoracic aortic aneurysm, without rupture; E78.2 Mixed hyperlipidemia; E78.00 Pure hypercholesterolemia, unspecified; I34.0 Nonrheumatic mitral (valve) insufficiency; I11.9 Hypertensive heart disease without heart failure; I45.10 Unspecified right bundle-branch block; Z79.82 Long term (current) use of aspirin; Z79.899 Other long term (current) drug therapy
CPT/HCPCS: 70450; 71045; 71046; 74177; 78452; 80048; 80053; 80061; 81000; 82947 ×3; 83036; 83605; 83690; 84145; 84484; 85025 ×2; 85379; 85610; 85730; 86141; 87040; 87088; 87636; 93005; 93017; 93306; 99284; A9502; 36415